=== PATIENT | female | born 1945 | race Caucasian/White ===

== ENCOUNTER 2021-10-04 00:42 | Inpatient (IN) | payer MEDICARE, SELFPAY ==
[2021-10-04] VITALS (28 sets, daily range): BP systolic 124–160; BP diastolic 66–103; PULSE 78–108; RESP 16–27; TEMP 36.2–37.3; O2SAT 93–100; BMI 28.2; BMI 28.1
--- NOTE | ~2021-10-04 | CT_ITS ---
EXAMINATION: CT brain wo con DATE: 10/04/2021 01:44 INDICATION: Confusion. TECHNIQUE: Computed tomography (CT) of the head was performed without intravenous contrast. The mA wa s adjusted according to patient size. Iterative reconstruction technique was employed. The dose-lengt h product was 681.00 mGy-cm. COMPARISON: Head CT 03/08/2016 FINDINGS: There is chronic encephalomalacia in left parietal lobe. There are scattered areas of low a ttenuation in the cerebral white matter. There is no acute ischemic infarct or intracranial hemorrhag e. The ventricles are dilated out of proportion to the size of the sulci. There are likely changes of ocular lens replacement surgeries. The paranasal sinuses are clear. There are small mastoid effusio ns. IMPRESSION: 1. Chronic encephalomalacia in left parietal lobe. 2. Mild nonspecific cerebral white matter disease, which likely represents chronic small vessel ische lakisha disease. 3. Stable ventriculomegaly. Correlate clinically for normal pressure hydrocephalus. Reviewed, dictated and finalized at location A. IMPRESSION: 1. Chronic encephalomalacia in left parietal lobe. 2. Mild nonspecific cerebral white matter disease, which likely represents director digital sales javier small vessel ischemic disease. 3. Stable ventriculomegaly. Correlate clinically for normal pressure hydrocepha lance.
--- NOTE | ~2021-10-04 | US_ITS ---
EXAMINATION: US renal BI DATE: 10/04/2021 09:32 INDICATION: Acute renal insufficiency TECHNIQUE: Multiple ultrasound grayscale images of the kidneys were obtained. COMPARISON: None. FINDINGS: The right kidney measures 8.3 x 4.7 x 4.2 cm. The left kidney measures 10.9 x 6.0 x 3.9 cm. The kidne ys demonstrate normal echogenicity. There is no hydronephrosis in either kidney. No stones identifie d. Patient refused scanning of the bladder. IMPRESSION: 1. Normal kidneys without hydronephrosis. Reviewed, dictated and finalized at location B.
--- NOTE | ~2021-10-04 | US_ITS ---
EXAMINATION: US abdomen limited DATE: 10/07/2021 09:17 INDICATION: Transaminitis TECHNIQUE: Multiple grayscale and Doppler ultrasound images of the abdomen were obtained. COMPARISON: None available FINDINGS: Bowel gas obscures portions of the pancreas. The visualized portions of the pancreas are un remarkable. The liver is difficult to penetrate but grossly normal with normal echogenicity and echot exture. No surface nodularity. Normal hepatopetal flow in the main portal vein. The gallbladder is no t visualized. The common bile duct measures 1.4 cm. There was no sonographic Colon sign. The visuali zed portions of the aorta and inferior vena cava are normal. IMPRESSION: 1. Limited examination. 2. Nonvisualization of the gallbladder. 3. Common bile duct dilation. Reviewed, dictated and finalized at location K.
--- NOTE | ~2021-10-04 | US_ITS ---
EXAMINATION: US soft tissue head and neck DATE: 10/04/2021 17:27 INDICATION: Left facial wound. TECHNIQUE: Multiple grayscale and Doppler ultrasound images of the face were obtained. COMPARISON: Head CT 10/04/2021 FINDINGS: There is hyperechoic fat in the left cheek, consistent with inflammation. No abscess. IMPRESSION: 1. Left cheek inflammation. No abscess. Reviewed, dictated and finalized at location A.
[2021-10-04 02:09] LABS: Basophils Percent Auto 0.1 % (0.2-1.2); Hematocrit 43.1 % (37.0-47.0); Hemoglobin 13.9 g/dL (12.0-15.0); Immature Granulocyte Absolute 0.14 K/mm3 (0.00-0.031); Immature Granulocyte Percent A 0.7 % (0-0.5); Lymphocytes Absolute Auto 1.51 K/mm3 (0.9-3.2); Lymphocytes Percent Auto 7.2 % (18.3-44.2); Mean Corpuscular HGB Conc 32.3 g/dl (32-36); Mean Corpuscular Hemoglobin 27.8 pg (26-34); Mean Corpuscular Volume 86.2 fl (80-100); Mean Platelet Volume 9.8 fl (7.4-10.4); Monocytes Absolute Auto 1.3 K/mm3 (0.1-0.6); Monocytes Percent Auto 6.2 % (2.6-8.5); Neutrophils Absolute Auto 17.9 K/mm3 (1.3-6.7); Neutrophils Percent Auto 85.8 % (45.5-73.1); Platelet Count Result 451 k/mm3 (150-375); White Blood Count 20.9 K/mm3 (4.5-10.0)
[2021-10-04 02:19] LABS: Alanine Aminotransferase 33 U/L (4-35); Albumin Level 4.5 g/dL (3.5-5.1); Alkaline Phosphatase 181 U/L (38-126); Anion Gap 15 mmol/L (8-16); Aspartate Amino Transferase 60 U/L (14-36); Bilirubin,Total 0.5 mg/dL (0.2-1.3); Blood Urea Nitrogen 39 mg/dL (7-17); Calcium 10.6 mg/dL (8.4-10.2); Carbon Dioxide 22 mmol/L (22-30); Chloride 107 mmol/L (98-107); Estimated Glomerular Filt Rate 12; Glucose 193 mg/dL (65-110); Potassium 3.7 mmol/L (3.4-5.0); Sodium 144 mmol/L (137-145)
[2021-10-04 02:39] LABS: Add Urine Microscopic? YES; Appearance Urine Cloudy (Clear); Bilirubin Urine Negative (Negative); Blood Urine 1+ (Negative); Color Urine Yellow (Yellow); Glucose Urine UA Negative (Negative); Ketones Urine Negative (Negative); Leukocyte Esterase Ur 3+ LEU/UL (Negative); Mucus Urine Rare /lpf; Nitrate Urine Negative (Negative); Protein Urine 1+ mg/dL (Negative); Specific Grav Ur 1.014 (1.001-1.035); Squamous Epithelial Cell Urine Occasional /hpf (Few); Urobilinogen Urine Negative mg/dL (<2.0); WBC Clumps Urine Present /HPF; WBC Urine >75 /hpf
[2021-10-04 02:45] LABS: Amphetamine Screen Urine Negative (Negative); Barbiturate Screen Urine Negative (Negative); Benzodiazepines Screen Urine Negative (Negative); Cannabinoid Screen Urine Negative (Negative); Cocaine Screen Urine Negative (Negative); Methadone Screen Urine Negative (Negative); Opiate Screen Urine Negative (Negative); Phencyclidine Screen Urine Negative (Negative)
--- NOTE | 2021-10-04 02:53 | ED.GENADULT ---
HPI - General Adult General Chief complaint: Unspecified Stated complaint: delusions hx schizo Time Seen by Provider: 10/04/21 00:45 Source: patient Mode of arrival: EMS Limitations: altered mental status History of Present Illness HPI narrative: 76-year-old with a history of schizophrenia was brought in from [facility] by EMS she was found naked in front of her hotel room stating that her son has been killed 3 days ago, she states that she has been watching TV and found disturbing news. However upon arrival to the ER patient states that she is extremely dehydrated. She denies any fever or chills. No history of nausea or vomiting and diarrhea. Denies any abdominal pain. As per the EMS patient fell earlier with no loss of consciousness. Patient states that she has not been taking her psych medications. Onset (ago): day(s) (1) Location: head Associated symptoms: denies other symptoms Related Data Allergies Allergy/AdvReac Type Severity Reaction Status Date / Time Unable to Assess Allergy Unverified 03/08/16 17:09 Review of Systems Review of Systems: All systems reviewed & are unremarkable except as noted in HPI and below Constitutional: Constitutional: Reports no additional constitutional complaints Eyes: Eyes: Reports no additional eye complaints ENT: Reports system reviewed and no additional complaints, except as documented Cardiovascular: Cardiovascular: Reports no additional cardiovascular complaints Respiratory: Respiratory: Reports no additional respiratory complaints Gastrointestinal: Gastrointestinal: Reports no additional gastrointestinal complaints Genitourinary: Genitourinary: Reports no additional female genitourinary complaints Musculoskeletal: Musculoskeletal: Reports no additional musculoskeletal complaints Integumentary/Breasts: Skin/Breast: Reports system reviewed and no additional complaints, except as docu Neurologic: Reports system reviewed and no additional complaints, except as documented Exam Narrative: GENERAL: Well-appearing, well-nourished, and in no acute distress. Confused HEAD: Normocephalic, atraumatic. EYES: PERRLA and EOMI. NECK: Supple. CHEST: Clear to auscultation. No respiratory distress. HEART: Regular rate and rhythm. No murmur heard. Normal peripheral pulses. ABDOMEN: Soft, nontender, nondistended, normal active bowel sounds. EXTREMITIES: Normal range of motion. No edema. SKIN: Warm, dry, no rash. NEURO: No focal deficits. Alert and oriented x3. Confused at times PSYCH: Normal mood and affect. Course Course Emergency Course: Inform patient about her lab work. She agreed for admission. Discussed with Dr. Hassan agreed to admit the patient. Vital Signs Vital signs: Vital Signs Temperature 36.7 C 10/04/21 00:47 Pulse Rate 106 H 10/04/21 00:47 Respiratory Rate 20 10/04/21 00:47 Blood Pressure 124/71 10/04/21 00:47 Pulse Oximetry 97 10/04/21 00:47 Temperature 36.7 C 10/04/21 00:47 Pulse Rate 102 H 10/04/21 01:27 Respiratory Rate 25 H 10/04/21 01:27 Blood Pressure 143/83 H 10/04/21 01:27 Pulse Oximetry 99 10/04/21 01:27 Medical Decision Making MDM Narrative Medical decision making narrative: 76-year-old with a history of schizophrenia now having confusion and paranoia not quite sure whether she is decompensating or could be underlying metabolic or infectious cause. We will do a CT of the head and routine lab work. Differential Diagnosis Differential Diagnosis: Hyponatremia, head injury, UTI, schizophrenia Medical Records Medical records reviewed: Yes I reviewed the external patient's medical records. Vital Signs Vital Signs: Vital Signs Temperature 36.7 C 10/04/21 00:47 Pulse Rate 106 H 10/04/21 00:47 Respiratory Rate 20 10/04/21 00:47 Blood Pressure 124/71 10/04/21 00:47 Pulse Oximetry 97 10/04/21 00:47 Temperature 36.7 C 10/04/21 00:47 Pulse Rate 102 H 10/04/21 01:27 Respiratory Rate 25 H
[2021-10-04] MEDS: SODIUM CHLORIDE 0.9% IV 1,000 ML 150 ML IV CONT (03:00)
[2021-10-04] MEDS: OXYMETAZOLINE HCL 0.05% NAS 15 ML BTL (*BKC) 1 SPRAY (03:27)
[2021-10-04 03:48] LABS: Acetaminophen < 10 ug/mL (10-30); Lactic Acid Reflex 1.4 mmol/L (0.7-2.0); Salicylate < 1.0 mg/dL (2-20)
[2021-10-04 04:13] LABS: SARS-CoV-2 RNA PCR Negative
[2021-10-04] MEDS: SODIUM CHLORIDE 0.9% IV 1,000 ML 125 ML IV CONT ×2 (04:51→10:34)
[2021-10-04] MEDS: ASPIRIN 81 MG ENTERIC TABLET PO (08:56)
[2021-10-04 09:04] LABS: Anion Gap 10 mmol/L (8-16); Blood Urea Nitrogen 44 mg/dL (7-17); Calcium 9.6 mg/dL (8.4-10.2); Carbon Dioxide 19 mmol/L (22-30); Chloride 112 mmol/L (98-107); Estimated CRCL calculation 19 ml/min; Estimated Glomerular Filt Rate 18; Glucose 109 mg/dL (65-110); Potassium 3.6 mmol/L (3.4-5.0); Sodium 141 mmol/L (137-145)
[2021-10-04] MEDS: ACETAMINOPHEN 325 MG TABLET 650 MG PO (10:35)
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
--- NOTE | 2021-10-04 16:09 | PHAR ---
HOME MEDICATION - PALIPERIDONE 3 MG TABLET. ARRIVED IN A CONTAINER WITH INVEGA WRITTEN ON IT. PHARMACY HAS VERIFIED THAT THE DRUG IN THE CONTAINER IS PALIPERIDONE 3 MG.
[2021-10-04 17:43] LABS: Creatine Kinase 939 U/L (30-135)
[2021-10-04] MEDS: rOPINIRole HCL 1 MG TABLET PO (20:24)
[2021-10-04] MEDS: QUEtiapine FUMARATE 100 MG TABLET PO (20:24)
[2021-10-05] VITALS: BP 93/64; PULSE 79; RESP 18; TEMP 36.4; O2SAT 100
[2021-10-05] MEDS: SODIUM CHLORIDE 0.9% IV 1,000 ML 125 ML IV CONT ×2 (01:11→13:27)
[2021-10-05 04:00] VITALS: BP 117/64; PULSE 63; RESP 16; TEMP 36; O2SAT 100
[2021-10-05 04:57] VITALS: O2SAT 98
--- NOTE | 2021-10-05 07:32 | WPDCN ---
Assessment and Plan Assessment and plan (1) Open facial wound: Code(s): S01.80XA - Unspecified open wound of other part of head, initial encounter Status: Acute Assessment and Plan: This appears to be erysipelas or topical dermatis. May have been started by a smaller irritation and then contaminated and treated with ointment such as Neosporin. Does not appear to be an abscess or skin ca. Ceftriaxone seems appropriate for a few of days. Avoid topical ointments. We may want to consider topical cortisone after observing the course of this for a couple days. Work up for other source of leukocytosis seems warranted. Will follow. HPI Data of Consult Date/Time: 10/05/21 07:32 Requesting Physician: Jocy Moon PA-C Primary Care Provider: UNKNOWN,DOCTOR Consult Narrative Narrative: Veronica Torres is a 76 year old female with schizophrenia apparently decompensated and has lost her lodging. On admission for dementia she has been noted to have swelling, erythema and excoriation of the mid left cheek. There is superficial edema and yellow serous drainage. No palpable central mass or chronic actinic damage or elevated or necrotic epithelium. Duration of this lesion or recent treatment for it are not known. Her WBC was 20.[address] of the head and neck did not reveal evidence of facial abscess. The patient is minimally cooperative to exam. Current antibiotic treatment is Ceftriaxone. [facility] Past Medical History Medical History (Updated 10/04/21 @ 15:36 by Jocy Moon PA-C) CVA (cerebral vascular accident) Glaucoma Hypertension Schizophrenia Family History Family History (Updated 10/04/21 @ 15:20 by Jocy Moon PA-C) Unknown Family history unknown Social History Social History (Updated 10/04/21 @ 15:29 by Jocy Moon PA-C) Social History: Ms. Torres lives alone. She has been staying in a hotel for several months but now states she can't pay for this anymore. She has no family or friend support. She states her emergency contact is a friend named Mary but she has not spoken to her in years. She requests to be a full code. Smoking status: Never smoker Second hand tobacco smoke exposure: No Alcohol intake: unknown Substance use: unknown Spiritual care concerns: No Meds Home Medications and Allergies Home Medications Medication Instructions Recorded Confirmed Type aspirin 81 mg PO DAILY 10/04/21 10/04/21 History omeprazole 20 mg PO DAILY 10/04/21 10/04/21 History paliperidone 3 mg PO HS 10/04/21 10/04/21 History quetiapine 100 mg PO HS 10/04/21 10/04/21 History ropinirole 1 mg PO HS 10/04/21 10/04/21 History Allergies Allergy/AdvReac Type Severity Reaction Status Date / Time No Known Allergies Allergy Verified 10/04/21 03:26 Vital Signs Vital Signs - 24 hr 10/04/21 14:00 10/04/21 20:00 10/05/21 00:00 Temperature 99.1 F 98.7 F 97.6 F Pulse Rate 78 84 79 Respiratory Rate 19 18 18 Blood Pressure 138/80 127/80 93/64 L Pulse Oximetry 99 97 100 10/05/21 04:00 10/05/21 04:57 Temperature 96.8 F L Pulse Rate 63 Respiratory Rate 16 Blood Pressure 117/64 Pulse Oximetry 100 98 Results Labs CBC & Chem 7: 10/04/21 02:02 10/04/21 08:06 Labs: BMP 10/04/21 08:06 Sodium 141 Potassium 3.6 Chloride 112 H Carbon Dioxide 19 L BUN 44 H Creatinine 2.60 H Glucose 109 Calcium 9.6 Cardiac Enzymes 10/04/21 Range/Units 16:38 Total Creatine Kinase 939 H (30-135) U/L
[2021-10-05 08:00] VITALS: BP 120/62; PULSE 64; RESP 16; TEMP 36.1; O2SAT 98
--- NOTE | 2021-10-05 08:05 | PCOTNOTE ---
Attempted OT evaluation this AM. Patient sleeping soundly and would not open eyes to verbal or tactile stimulation. When asked if she wants to get up for breakfast she shakes her head no . Will continue to attempt.
[2021-10-05 08:36] LABS: Basophils Absolute Auto 0.1 K/mm3 (0.0-0.1); Basophils Percent Auto 1.1 % (0.2-1.2); Eosinophils Absolute Auto 0.5 K/mm3 (0-0.3); Eosinophils Percent Auto 4.6 % (0-4.4); Hematocrit 35.9 % (37.0-47.0); Hemoglobin 11.7 g/dL (12.0-15.0); Immature Granulocyte Absolute 0.03 K/mm3 (0.00-0.031); Immature Granulocyte Percent A 0.3 % (0-0.5); Lymphocytes Absolute Auto 3.53 K/mm3 (0.9-3.2); Lymphocytes Percent Auto 33.1 % (18.3-44.2); Mean Corpuscular HGB Conc 32.6 g/dl (32-36); Mean Corpuscular Hemoglobin 27.9 pg (26-34); Mean Corpuscular Volume 85.5 fl (80-100); Mean Platelet Volume 9.3 fl (7.4-10.4); Monocytes Absolute Auto 0.7 K/mm3 (0.1-0.6); Monocytes Percent Auto 6.2 % (2.6-8.5); Neutrophils Absolute Auto 5.8 K/mm3 (1.3-6.7); Neutrophils Percent Auto 54.7 % (45.5-73.1); Platelet Count Result 346 k/mm3 (150-375); Red Cell Distribution Width 15.1 % (11.5-14.5); White Blood Count 10.7 K/mm3 (4.5-10.0)
[2021-10-05 08:42] LABS: Hemoglobin A1C 5.9 % (<5.7)
[2021-10-05 08:55] LABS: Creatine Kinase 1044 U/L (30-135)
[2021-10-05 08:58] LABS: Alanine Aminotransferase 33 U/L (4-35); Albumin Level 3.1 g/dL (3.5-5.1); Alkaline Phosphatase 121 U/L (38-126); Anion Gap 4 mmol/L (8-16); Aspartate Amino Transferase 71 U/L (14-36); Bilirubin,Total 0.4 mg/dL (0.2-1.3); Blood Urea Nitrogen 36 mg/dL (7-17); Calcium 9.1 mg/dL (8.4-10.2); Carbon Dioxide 23 mmol/L (22-30); Chloride 114 mmol/L (98-107); Estimated CRCL calculation 32 ml/min; Estimated Glomerular Filt Rate 34; Glucose 88 mg/dL (65-110); Potassium 3.6 mmol/L (3.4-5.0); Sodium 141 mmol/L (137-145)
--- NOTE | 2021-10-05 11:59 | ECG_ITS ---
Measurements Intervals [place] Rate: 95 P: 48 GA: 149 QRS: -9 QRSD: 88 T: 12 QT: 353 QTc: 445 Interpretive Statements SINUS RHYTHM LOW QRS VOLTAGE IN PRECORDIAL LEADS [QRS DEFLECTION < 1.0 mV IN CHEST LEADS] NO PREVIOUS ECG AVAILABLE FOR COMPARISON Electronically Signed On 10-06-2021 13:37:17 CDT by Jodee Butt M.D.
[2021-10-05 12:00] VITALS: BP 122/64; PULSE 64; RESP 16; TEMP 36.9; O2SAT 99
[2021-10-05 12:26] LABS: Cholesterol 198 mg/dL (0-200); HDL Direct 40 mg/dL; Triglycerides 276 mg/dL (<150)
[2021-10-05 12:37] LABS: LDL Cholesterol Direct 112 mg/dL
[2021-10-05 12:41] LABS: Vitamin D 25 Hydroxy 33.3 ng/mL
[2021-10-05 13:08] LABS: Hepatitis B Surface Antigen Negative (Negative)
[2021-10-05 13:10] LABS: HIV 1/2 Ab P24 Ag Result Negative (Negative)
[2021-10-05 13:14] LABS: HAV RESULT Negative (Negative); Hepatitis B Core IgM Result Negative (Negative)
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
[2021-10-05 13:26] LABS: Hepatitis C Virus Antibody Negative (Negative)
[2021-10-05] MEDS: ASPIRIN 81 MG ENTERIC TABLET PO (13:28)
[2021-10-05 13:41] LABS: Folic Acid 11.2 ng/mL (2.76->20)
[2021-10-05 20:00] VITALS: BP 138/67; PULSE 88; RESP 24; TEMP 37.1; O2SAT 98
[2021-10-05] MEDS: rOPINIRole HCL 1 MG TABLET PO (21:11)
[2021-10-05] MEDS: QUEtiapine FUMARATE 100 MG TABLET PO (21:11)
[2021-10-05] MEDS: SODIUM CHLORIDE 0.9% IV 1,000 ML 100 ML IV CONT (21:16)
[2021-10-06] VITALS (7 sets, daily range): BP systolic 124–173; BP diastolic 66–78; PULSE 80–94; RESP 16–24; TEMP 36.6–37.4; O2SAT 94–97
[2021-10-06 05:56] LABS: Hematocrit 31.3 % (37.0-47.0); Hemoglobin 9.7 g/dL (12.0-15.0); Mean Corpuscular Hemoglobin 27.8 pg (26-34); Mean Corpuscular Volume 89.7 fl (80-100); Mean Platelet Volume 10.1 fl (7.4-10.4); Platelet Count Result 267 k/mm3 (150-375); Red Blood Count 3.49 M/mm3 (4.2-5.4); Red Cell Distribution Width 15.6 % (11.5-14.5); White Blood Count 7.8 K/mm3 (4.5-10.0)
[2021-10-06] MEDS: SODIUM CHLORIDE 0.9% IV 1,000 ML 100 ML IV CONT (06:26)
[2021-10-06 06:27] LABS: Alanine Aminotransferase 93 U/L (4-35); Albumin Level 2.6 g/dL (3.5-5.1); Alkaline Phosphatase 192 U/L (38-126); Anion Gap 5 mmol/L (8-16); Aspartate Amino Transferase 278 U/L (14-36); Bilirubin,Total 0.5 mg/dL (0.2-1.3); Blood Urea Nitrogen 33 mg/dL (7-17); Calcium 8.2 mg/dL (8.4-10.2); Carbon Dioxide 19 mmol/L (22-30); Chloride 117 mmol/L (98-107); Creatine Kinase 380 U/L (30-135); Estimated CRCL calculation 43 ml/min; Estimated Glomerular Filt Rate 48; Glucose 116 mg/dL (65-110); Potassium 3.7 mmol/L (3.4-5.0); Sodium 141 mmol/L (137-145)
[2021-10-06] MEDS: ASPIRIN 81 MG ENTERIC TABLET PO (07:57)
--- NOTE | 2021-10-06 14:32 | P.PNIM_ITS ---
Progress Note: A&P Assessment and Plan (1) Sepsis: Code(s): A41.9 - Sepsis, unspecified organism Status: Resolved Assessment and Plan: Resolved. Patient septic on presentation evident by marked leukocytosis, t achycardia, tachypnea, and acute renal failure * Source of infection felt to be due to UTI * Tachypnea and tachycardia resolved. Patient remains afebrile * Leukocytosis resolved * Continue IV antibiotics (2) Open facial wound: Code(s): S01.80XA - Unspecified open wound of other part of head, initial encounter Status: Acute Assessment and Plan: Patient with left-sided facial wound draining yellow serous fluid with surrounding erythema, edema * Patient not agreeable to CT for further evaluation. Ultrasound showed left cheek inflammation without abscess * Appreciate Plastic surgery consultation * Wound culture pending * Appreciate wound care evaluation * Continue ceftriaxone per plastic surgery recommendations. Avoid topical ointments (3) Acute UTI: Code(s): N39.0 - Urinary tract infection, site not specified Status: Acute Assessment and Plan: Urinalysis grossly abnormal at presentation * Urine culture with growth of >100k CFU coagulase negative Staphylococcus * Transition antibiotics to cefazolin based on susceptibility report (4) Schizophrenia: Code(s): F20.9 - Schizophrenia, unspecified Status: Acute Assessment and Plan: Patient has been off of her medications for 1 week. She is experiencing hallucinations and delusions * Continue paliperidone. This is nonformulary but has been brought from home and will be continued * Continue seroquel * Appreciate psychiatry evaluation * Laboratory workup unremarkable: TSH, B12, folate, vitamin-D within normal limits, HIV, hepatitis panel negative, RPR pending * MMSE score is 28/30 (5) Rhabdomyolysis: Code(s): M62.82 - Rhabdomyolysis Status: Acute Assessment and Plan: CK was mildly elevated up to 1044. This was following 24 hours of IV hydration, therefore suspect was more significant on presentation * Etiology for this is unclear. Patient's son believes she had a fall which is the likely etiology * CK as improved to 380 today * Discontinue IV fluids (6) MUNDO (acute kidney injury): Code(s): N17.9 - Acute kidney failure, unspecified Status: Acute Assessment and Plan: Likely pre renal secondary to severe dehydration * Creatinine has improved with IV fluids from 3.7 on presentation to 1.1 today * Discontinue IV fluids. Encourage appropriate oral intake * Renal ultrasound performed showed normal kidneys without hydronephrosis * Avoid nephrotoxins * Monitor renal function closely (7) Transaminitis: Code(s): R74.01 - Elevation of levels of liver transaminase levels Status: Acute Assessment and Plan: Sharp increase in LFTs today * May be delayed response to rhabdomyolysis * May be medication related * Continue to monitor closely * Obtain RUQ US if no improvement Subjective Date/time seen: 10/06/21 14:32 Interval history: Date of service: 10/06/2021 Veronica Torres is a 76-year-old female with a history of schizophrenia, glaucoma, hypertension, and CVA who is seen in follow-up for UTI and left facial wound. She is feeling well today. She has no concerns. States that she is not having any facial pain from her wound. Denies abdominal pain, nausea, vomiting, chest pain, shortness of breath. Denies any issues with urinat
--- NOTE | 2021-10-06 14:32 | PM.IMPN ---
Progress Note: A&P Assessment and Plan (1) Sepsis: Code(s): A41.9 - Sepsis, unspecified organism Status: Resolved Assessment and Plan: Resolved. Patient septic on presentation evident by marked leukocytosis, tachycardia, tachypnea, and acute renal failure Source of infection felt to be due to UTI Tachypnea and tachycardia resolved. Patient remains afebrile Leukocytosis resolved Continue IV antibiotics (2) Open facial wound: Code(s): S01.80XA - Unspecified open wound of other part of head, initial encounter Status: Acute Assessment and Plan: Patient with left-sided facial wound draining yellow serous fluid with surrounding erythema, edema Patient not agreeable to CT for further evaluation. Ultrasound showed left cheek inflammation without abscess Appreciate Plastic surgery consultation Wound culture pending Appreciate wound care evaluation Continue ceftriaxone per plastic surgery recommendations. Avoid topical ointments (3) Acute UTI: Code(s): N39.0 - Urinary tract infection, site not specified Status: Acute Assessment and Plan: Urinalysis grossly abnormal at presentation Urine culture with growth of >100k CFU coagulase negative Staphylococcus Transition antibiotics to cefazolin based on susceptibility report (4) Schizophrenia: Code(s): F20.9 - Schizophrenia, unspecified Status: Acute Assessment and Plan: Patient has been off of her medications for 1 week. She is experiencing hallucinations and delusions Continue paliperidone. This is nonformulary but has been brought from home and will be continued Continue seroquel Appreciate psychiatry evaluation Laboratory workup unremarkable: TSH, B12, folate, vitamin-D within normal limits, HIV, hepatitis panel negative, RPR pending MMSE score is 28/30 (5) Rhabdomyolysis: Code(s): M62.82 - Rhabdomyolysis Status: Acute Assessment and Plan: CK was mildly elevated up to 1044. This was following 24 hours of IV hydration, therefore suspect was more significant on presentation Etiology for this is unclear. Patient's son believes she had a fall which is the likely etiology CK as improved to 380 today Discontinue IV fluids (6) MUNDO (acute kidney injury): Code(s): N17.9 - Acute kidney failure, unspecified Status: Acute Assessment and Plan: Likely pre renal secondary to severe dehydration Creatinine has improved with IV fluids from 3.7 on presentation to 1.1 today Discontinue IV fluids. Encourage appropriate oral intake Renal ultrasound performed showed normal kidneys without hydronephrosis Avoid nephrotoxins Monitor renal function closely (7) Transaminitis: Code(s): R74.01 - Elevation of levels of liver transaminase levels Status: Acute Assessment and Plan: Sharp increase in LFTs today May be delayed response to rhabdomyolysis May be medication related Continue to monitor closely Obtain RUQ US if no improvement Subjective Date/time seen: 10/06/21 14:32 Interval history: Date of service: 10/06/2021 Veronica Torres is a 76-year-old female with a history of schizophrenia, glaucoma, hypertension, and CVA who is seen in follow-up for UTI and left facial wound. She is feeling well today. She has no concerns. States that she is not having any facial pain from her wound. Denies abdominal pain, nausea, vomiting, chest pain, shortness of breath. Denies any issues with urination including dysuria. She has been able to get up and walk to the restroom without difficulties. She has no concerns. Spoke with patient's son, Jairo, via phone today to provide updates. Review of Systems Review of Systems: All systems reviewed & are unremarkable except as noted in HPI and below Exam Narrative: General: Well-nourished, well-appearing 76 year-old female, sitting up in bed, comfortable, NARD Neuro: awake, ahmet
--- NOTE | 2021-10-06 22:16 | WPDCNPSYCH ---
[facility] Data of Consult Date/Time: 10/06/21 22:16 Requesting Physician: Jocy Moon PA-C Primary Care Provider: UNKNOWN,DOCTOR Consult Narrative Narrative: Diagnoses: Schizophrenia Cognitive disorder, not otherwise specified Rising liver function tests of unknown etiology Rhabdomyolysis, resolving Hyperlipidemia Discussion: Patient presented with an altered mental state with prominent psychotic features in the context of a urinary tract infection, rhabdomyolysis, infected facial wound, dehydration, and pharmacologic noncompliance. With the use of good medical management the patient is improving not only medically but also her mental status has much improved. Her psychosis is resolved. She has no meaningful behavioral features. Differential diagnoses: Delirium due to urosepsis Neurocognitive disorder (dementia), possibly of the vascular type, mild, with superimposed delirium possibly from urosepsis (much improved due to good medical management) Plan: 1. Discontinue Seroquel due to patient report of it being too sedating. 2. Discontinue Requip due to the high anticholinergic/antihistaminic side effect risks of delirium and urinary retention with it's risk of UTI and delirium 3. Discontinue Omeprazole dute to not needed and she has not been taking it. 4. Risperdal 1 mg po q hs for Schizophrenia. Target dose 2 mg po q hs 5. Continue ASA 81 mg po q am 6. Care coordination consult for MMSE to screen for dementia, to discuss advanced directive, and to liaison patient request to move closer to her son. Reason for hospitalization: Patient is a 76-year-old lady admitted through the emergency department for altered mental state in the context of pharmacologic noncompliance, urinary tract infection, rhabdomyolysis, infected facial wound, and dehydration Reason for psychiatric evaluation/consultation: Psychosis Review of systems: Patient reports upper back discomfort. Otherwise she denies any other problems with her head chest abdomen arms legs or joints. Muscle strength and tone are normal. Station and gait were not tested. Breathing is regular and nonlabored. She has no shakes or sweats. Mental status exam: Patient has a mild self-care deficit. Eye contact, posture, psychomotor activity are normal. Speech is normal in rate, volume, and is goal-directed. Mood is: ?Great. ? affect is euthymic. She denies suicidal or homicidal ideation. She denies being an injury risk to herself or others. She denies any auditory or visual hallucinations or paranoia. Cognitively she appears to be below average in intelligence, fund of knowledge, insight and judgment. But she seems much improved over earlier presentation. She may continue to improve with continued good medical care. Medical evaluation: CBC: WBCs are 10.7; hemoglobin was 11.7 which has corrected to 9.7 Comprehensive metabolic panel: Glucose was 116; chloride was 117; CO2 was 19; BUN was 33; creatinine was 1.10; calcium was 8.2; AST was 71 which has risen to 278; ALT was 33 and has increased to 93; alkaline phosphatase was 121 and has risen to 192 Serum CK: 939 which corrected to 1044 and then corrected again to 380 Lipid panel:TG =276; Cholesterol = 198; LDL =112; HDL =40 Vitamin B12 level is 325 Vitamin D3 level is 33 Folic acid level is 11.2 TSH is 3.4 1 0 Urinalysis is consistent with urinary tract infection Urine culture and sensitivity: Coagulase negative Staph (not saprophyti) Urine drug screen: Negative Salicylate level less than 1.0 COVID testing: Pending HIV serology negative Hepatitis panel negative RPR serology pending CT of the head without contrast demonstrates chronic encephalomalacia of the left parietal lobe. Ventricles dilated out of proportion to the size of sulci. Changes of the ocular lens consistent with replacement surgery EKG: Sinus rhythm. History of present illness: Medical service report: Patient was admitted through the emergency
[2021-10-06] MEDS: risperiDONE 1 MG TABLET PO (23:20)
[2021-10-07 04:00] VITALS: BP 157/89; PULSE 84; RESP 16; TEMP 36.7; O2SAT 97
[2021-10-07 06:11] LABS: Hematocrit 32.7 % (37.0-47.0); Hemoglobin 10.4 g/dL (12.0-15.0); Mean Corpuscular HGB Conc 31.8 g/dl (32-36); Mean Corpuscular Hemoglobin 27.2 pg (26-34); Mean Corpuscular Volume 85.6 fl (80-100); Mean Platelet Volume 9.5 fl (7.4-10.4); Platelet Count Result 286 k/mm3 (150-375); Red Blood Count 3.82 M/mm3 (4.2-5.4); Red Cell Distribution Width 15.4 % (11.5-14.5); White Blood Count 5.3 K/mm3 (4.5-10.0)
[2021-10-07 06:26] LABS: Alanine Aminotransferase 214 U/L (4-35); Alkaline Phosphatase 283 U/L (38-126); Anion Gap 3 mmol/L (8-16); Aspartate Amino Transferase 265 U/L (14-36); Bilirubin,Total 0.6 mg/dL (0.2-1.3); Blood Urea Nitrogen 23 mg/dL (7-17); Calcium 8.6 mg/dL (8.4-10.2); Carbon Dioxide 22 mmol/L (22-30); Chloride 115 mmol/L (98-107); Creatine Kinase 200 U/L (30-135); Estimated CRCL calculation 52 ml/min; Estimated Glomerular Filt Rate > 60; Glucose 104 mg/dL (65-110); Potassium 3.9 mmol/L (3.4-5.0); Sodium 140 mmol/L (137-145)
--- NOTE | 2021-10-07 08:38 | WPDPN ---
Progress Note: A&P Assessment and Plan (1) Open facial wound: Code(s): S01.80XA - Unspecified open wound of other part of head, initial encounter Status: Acute Assessment and Plan: Overall marked improvement in pt's condition. The face appears little changed. Seems that self-inflicted scald burn with subsequent cellulitis may be likely cause. Will try a few days of TAC to the area tid and monitor reaction. Subjective Date/time seen: 10/07/21 08:38 Patient is awake and pleasantly conversant. She is grateful for all the help she has been given. She provides more history today. She tells me that the site on her left face had no issue until someone told her to apply very hot water to the cheek. She say she dot not treat the area with any other topical ointments or salves. She says the area has not ever hurt. There has been white creamy drainage, but realizes there is no such drainage at this time. The area does not itch. Exam Narrative: WBC has returned to nl level. The site is essentially unchanged in 2 days. There is superficial edema but no palpable mass and no expressible discharge. The area has dried yellow exudate. Minimal erythema or induration Objective Data Vital Signs Vital Signs: Vital Signs - 24 hr 10/06/21 14:40 10/06/21 16:00 10/06/21 20:00 Temperature 98.2 F 98.0 F Pulse Rate 84 89 Respiratory Rate 20 16 Blood Pressure 149/78 H 173/74 H Pulse Oximetry 94 97 96 10/06/21 23:43 10/07/21 04:00 Temperature 97.9 F 98.0 F Pulse Rate 80 84 Respiratory Rate 16 16 Blood Pressure 149/75 H 157/89 H Pulse Oximetry 97 97 Intake/Output Intake/Output: Intake & Output 10/04/21 10/05/21 10/06/21 10/07/21 23:59 23:59 23:59 23:59 Intake Total 4037 4227 2180 800 Output Total 0 Balance 4037 4227 2180 800 Meds/Results Medications: Active Medications Generic Name Dose Route Start Last Admin Trade Name Freq PRN Reason Stop Dose Admin Acetaminophen 650 mg 10/04/21 02:55 10/04/21 10:35 Acetaminophen 325 Mg Tablet PO 650 mg Q4H PRN Administration Mild Pain (1-3) or Fever Aspirin 81 mg 10/04/21 09:00 10/06/21 07:57 Aspirin 81 Mg Enteric Tablet PO 81 mg DAILY GIOVANI Administration Home Med 1 each 10/04/21 21:00 10/06/21 21:19 Home Medication (Paliperidone 3 Mg) BY MOUTH 11/03/21 20:59 1 each HS GIOVANI Administration Cefazolin Sodium 1 gm in 50 mls @ 100 mls/hr 10/06/21 14:00 10/07/21 07:30 Ancef 1 Gm/D5w 50 Ml Pm IVPB Infused Q8HR GIOVANI Infusion Ondansetron HCl 4 mg 10/04/21 02:55 Ondansetron Inj 4 Mg/2 Ml Vial IV PUSH Q4H PRN Nausea Risperidone 1 mg 10/06/21 21:00 10/06/21 23:20 Risperidone 1 Mg Tablet PO 1 mg HS GIOVANI Administration Radiology Results: ITS Impressions Head CT 10/04/21 07:00 IMPRESSION: 1. Chronic encephalomalacia in left parietal lobe. 2. Mild nonspecific cerebral white matter disease, which likely represents chronic small vessel ischemic disease. 3. Stable ventriculomegaly. Correlate clinically for normal pressure hydrocephalus. Renal Ultrasound 10/04/21 09:36 IMPRESSION: 1. Normal kidneys without hydronephrosis. Head/Neck Ultrasound 10/05/21 06:29 IMPRESSION: 1. Left cheek inflammation. No abscess. Labs Labs: Laboratory Results - last 24 hr 10/07/21 10/07/21 06:03 06:03 WBC 5.3 RBC 3.82 L Hgb 10.4 L Hct 32.7 L MCV 85.6 MCH 27.2 MCHC 31.8 L RDW 15.4 H Plt Count 286 MPV 9.5 Sodium 140 Potassium 3.9 Chloride 115 H Carbon Dioxide 22 Anion Gap 3 L BUN 23 H D Creatinine 0.90 Estim Creat Clear Calc 52 Estimated GFR > 60 Glucose 104 Calcium 8.6 Total Bilirubin 0.6 AST 265 H ALT 214 H Alkaline Phosphatase 283 H Total Creatine Kinase 200 H Total Protein 6.0 L Albumin 3.0 L Quality VTE Prophylaxis VTE prophylaxis: mechanical ordered
--- NOTE | 2021-10-07 08:43 | PC.NURSE ---
to ultrasound per stretcher
--- NOTE | 2021-10-07 09:00 | PC.NURSE ---
patient returning to room from ultrasound
[2021-10-07] MEDS: ASPIRIN 81 MG ENTERIC TABLET PO (09:01)
--- NOTE | 2021-10-07 10:44 | P.PNIM_ITS ---
Progress Note: A&P Assessment and Plan (1) Sepsis: Code(s): A41.9 - Sepsis, unspecified organism Status: Resolved Assessment and Plan: Resolved. Patient septic on presentation evident by marked leukocytosis, t achycardia, tachypnea, and acute renal failure * Source of infection felt to be due to UTI * Tachypnea and tachycardia resolved. Patient remains afebrile * Leukocytosis resolved * Continue IV antibiotics (2) Open facial wound: Code(s): S01.80XA - Unspecified open wound of other part of head, initial encounter Status: Acute Assessment and Plan: Patient with left-sided facial wound draining yellow serous fluid with surrounding erythema, edema * Patient not agreeable to CT for further evaluation. Ultrasound showed left cheek inflammation without abscess * Appreciate Plastic surgery consultation * Wound culture with growth of normal skin guru * Appreciate wound care evaluation * Continue ceftriaxone per plastic surgery recommendations. Trial topical triamcinolone ointment t.i.d. (3) Acute UTI: Code(s): N39.0 - Urinary tract infection, site not specified Status: Acute Assessment and Plan: Urinalysis grossly abnormal at presentation * Urine culture with growth of >100k CFU coagulase negative Staphylococcus * Continue cefazolin based on susceptibility report. Started on 10/06/21 (4) Schizophrenia: Code(s): F20.9 - Schizophrenia, unspecified Status: Acute Assessment and Plan: Patient had been off of her medications for 1 week presented with psychosis * Mental status has vastly improved following addition of antipsychotic agents * Appreciate psychiatry evaluation * Paliperidone discontinued. Started on risperidone 1 mg qHS * Seroquel and ropinirole discontinued * Laboratory workup unremarkable: TSH, B12, folate, vitamin-D within normal limits, HIV, hepatitis panel negative, RPR pending * MMSE score is 28 (5) Rhabdomyolysis: Code(s): M62.82 - Rhabdomyolysis Status: Acute Assessment and Plan: CK was mildly elevated up to 1044. This was following 24 hours of IV hydration, therefore suspect was more significant on presentation * Etiology for this is unclear. Patient's son believes she had a fall which is the likely etiology * CK has improved to 200 today * IV fluids discontinued 10/06 (6) MUNDO (acute kidney injury): Code(s): N17.9 - Acute kidney failure, unspecified Status: Resolved Assessment and Plan: Resolved. Likely pre renal secondary to severe dehydration * Creatinine normalized with IV fluid hydration * Continue to encourage appropriate oral intake * Renal ultrasound performed showed normal kidneys without hydronephrosis * Avoid nephrotoxins * Monitor renal function closely (7) Transaminitis: Code(s): R74.01 - Elevation of levels of liver transaminase levels Status: Acute Assessment and Plan: Sharp increase in LFTs compared to presentation * May be delayed response to rhabdomyolysis * May be medication related * Hepatitis panel negative * Obtain RUQ ultrasound * Continue to monitor closely Subjective Date/time seen: 10/07/21 10:44 Interval history: Date of service: 10/07/2021 Veronica Torres is a 76-year-old female with a history of schizophrenia, glaucoma, hypertension, and CVA who is seen in follow-up for UTI and left facial wound. She is doing well today. She offers no complaints. States her facial wound has been draining more today. It is not p
--- NOTE | 2021-10-07 10:44 | PM.IMPN ---
Progress Note: A&P Assessment and Plan (1) Sepsis: Code(s): A41.9 - Sepsis, unspecified organism Status: Resolved Assessment and Plan: Resolved. Patient septic on presentation evident by marked leukocytosis, tachycardia, tachypnea, and acute renal failure Source of infection felt to be due to UTI Tachypnea and tachycardia resolved. Patient remains afebrile Leukocytosis resolved Continue IV antibiotics (2) Open facial wound: Code(s): S01.80XA - Unspecified open wound of other part of head, initial encounter Status: Acute Assessment and Plan: Patient with left-sided facial wound draining yellow serous fluid with surrounding erythema, edema Patient not agreeable to CT for further evaluation. Ultrasound showed left cheek inflammation without abscess Appreciate Plastic surgery consultation Wound culture with growth of normal skin guru Appreciate wound care evaluation Continue ceftriaxone per plastic surgery recommendations. Trial topical triamcinolone ointment t.i.d. (3) Acute UTI: Code(s): N39.0 - Urinary tract infection, site not specified Status: Acute Assessment and Plan: Urinalysis grossly abnormal at presentation Urine culture with growth of >100k CFU coagulase negative Staphylococcus Continue cefazolin based on susceptibility report. Started on 10/06/21 (4) Schizophrenia: Code(s): F20.9 - Schizophrenia, unspecified Status: Acute Assessment and Plan: Patient had been off of her medications for 1 week presented with psychosis Mental status has vastly improved following addition of antipsychotic agents Appreciate psychiatry evaluation Paliperidone discontinued. Started on risperidone 1 mg qHS Seroquel and ropinirole discontinued Laboratory workup unremarkable: TSH, B12, folate, vitamin-D within normal limits, HIV, hepatitis panel negative, RPR pending MMSE score is 28 (5) Rhabdomyolysis: Code(s): M62.82 - Rhabdomyolysis Status: Acute Assessment and Plan: CK was mildly elevated up to 1044. This was following 24 hours of IV hydration, therefore suspect was more significant on presentation Etiology for this is unclear. Patient's son believes she had a fall which is the likely etiology CK has improved to 200 today IV fluids discontinued 10/06 (6) MUNDO (acute kidney injury): Code(s): N17.9 - Acute kidney failure, unspecified Status: Resolved Assessment and Plan: Resolved. Likely pre renal secondary to severe dehydration Creatinine normalized with IV fluid hydration Continue to encourage appropriate oral intake Renal ultrasound performed showed normal kidneys without hydronephrosis Avoid nephrotoxins Monitor renal function closely (7) Transaminitis: Code(s): R74.01 - Elevation of levels of liver transaminase levels Status: Acute Assessment and Plan: Sharp increase in LFTs compared to presentation May be delayed response to rhabdomyolysis May be medication related Hepatitis panel negative Obtain RUQ ultrasound Continue to monitor closely Subjective Date/time seen: 10/07/21 10:44 Interval history: Date of service: 10/07/2021 Veronica Torres is a 76-year-old female with a history of schizophrenia, glaucoma, hypertension, and CVA who is seen in follow-up for UTI and left facial wound. She is doing well today. She offers no complaints. States her facial wound has been draining more today. It is not painful or bothersome to her in any way. Denies dysuria or hematuria. No nausea, vomiting, fever, or chills. She has been eating well and has been enjoying the food here. We had a good conversation today about her past working in a [employer], also about her son and grandchildren. Review of Systems Review of Systems: All systems reviewed & are unremarkable except as noted in HPI and below Exam Narrative: General: Well-nourished,
[2021-10-07] MEDS: TRIAMCINOLONE ACET 0.5% OINT 15 GM TUBE 1 APPLIC TOPICAL ×3 (11:29→17:37)
[2021-10-07 11:34] VITALS: BP 127/66; PULSE 99; RESP 20; TEMP 35.5; O2SAT 98
[2021-10-07 11:35] VITALS: BP 108/59
[2021-10-07 12:51] VITALS: BP 121/57
[2021-10-07 16:00] VITALS: BP 140/74; PULSE 81; RESP 14; TEMP 36.1; O2SAT 97
[2021-10-07 20:00] VITALS: BP 140/71; PULSE 79; RESP 16; TEMP 36.3; O2SAT 97
[2021-10-07] MEDS: risperiDONE 1 MG TABLET PO (21:11)
[2021-10-08] VITALS (8 sets, daily range): BP systolic 138–194; BP diastolic 67–80; PULSE 77–103; RESP 14–20; TEMP 36–36.6; O2SAT 96–99
[2021-10-08 06:18] LABS: Hematocrit 31.7 % (37.0-47.0); Hemoglobin 10.4 g/dL (12.0-15.0); Mean Corpuscular HGB Conc 32.8 g/dl (32-36); Mean Corpuscular Hemoglobin 27.8 pg (26-34); Mean Corpuscular Volume 84.8 fl (80-100); Mean Platelet Volume 9.9 fl (7.4-10.4); Platelet Count Result 311 k/mm3 (150-375); Red Blood Count 3.74 M/mm3 (4.2-5.4); Red Cell Distribution Width 15.5 % (11.5-14.5); White Blood Count 6.5 K/mm3 (4.5-10.0)
[2021-10-08 06:38] LABS: Alanine Aminotransferase 117 U/L (4-35); Albumin Level 2.9 g/dL (3.5-5.1); Alkaline Phosphatase 232 U/L (38-126); Anion Gap 2 mmol/L (8-16); Aspartate Amino Transferase 93 U/L (14-36); Bilirubin,Total 0.2 mg/dL (0.2-1.3); Blood Urea Nitrogen 22 mg/dL (7-17); Calcium 8.7 mg/dL (8.4-10.2); Carbon Dioxide 23 mmol/L (22-30); Chloride 112 mmol/L (98-107); Estimated CRCL calculation 47 ml/min; Estimated Glomerular Filt Rate 54; Glucose 118 mg/dL (65-110); Sodium 137 mmol/L (137-145)
[2021-10-08] MEDS: ASPIRIN 81 MG ENTERIC TABLET PO (08:49)
[2021-10-08] MEDS: TRIAMCINOLONE ACET 0.5% OINT 15 GM TUBE 1 APPLIC TOPICAL ×3 (08:49→17:29)
[2021-10-08 09:14] LABS: Rapid Plasma Reagin Non-Reactive (NonReactive)
--- NOTE | 2021-10-08 12:46 | WPDPN ---
Progress Note: A&P Assessment and Plan (1) Open facial wound: Code(s): S01.80XA - Unspecified open wound of other part of head, initial encounter Status: Acute Assessment and Plan: No significant change. Continue current TAC to skin tid. Subjective Date/time seen: 10/08/21 12:46 It doesn't feel like anything. Exam Narrative: Site appears about the same. Area unchanged. Less dried exudate today. No significant induration. Non tender. Epithelium still boggy at inferior aspect. Objective Data Vital Signs Vital Signs: Vital Signs - 24 hr 10/07/21 12:51 10/07/21 16:00 10/07/21 20:00 Temperature 97.0 F L 97.3 F L Pulse Rate 81 79 Respiratory Rate 14 16 Blood Pressure 121/57 L 140/74 140/71 Pulse Oximetry 97 97 10/08/21 00:00 10/08/21 04:00 10/08/21 08:00 Temperature 97.4 F L 96.9 F L 96.8 F L Pulse Rate 103 H 80 82 Respiratory Rate 16 16 16 Blood Pressure 194/73 H 141/76 H 140/74 Pulse Oximetry 98 97 97 Intake/Output Intake/Output: Intake & Output 10/05/21 10/06/21 10/07/21 10/08/21 23:59 23:59 23:59 23:59 Intake Total 4227 2180 2240 1200 Balance 4227 2180 2240 1200 Meds/Results Medications: Active Medications Generic Name Dose Route Start Last Admin Trade Name Freq PRN Reason Stop Dose Admin Acetaminophen 650 mg 10/04/21 02:55 10/04/21 10:35 Acetaminophen 325 Mg Tablet PO 650 mg Q4H PRN Administration Mild Pain (1-3) or Fever Aspirin 81 mg 10/04/21 09:00 10/08/21 08:49 Aspirin 81 Mg Enteric Tablet PO 81 mg DAILY GIOVANI Administration Home Med 1 each 10/04/21 21:00 10/07/21 21:11 Home Medication (Paliperidone 3 Mg) BY MOUTH 11/03/21 20:59 1 each HS GIOVANI Administration Cefazolin Sodium 1 gm in 50 mls @ 100 mls/hr 10/06/21 14:00 10/08/21 06:25 Ancef 1 Gm/D5w 50 Ml Pm IVPB Infused Q8HR GIOVANI Infusion Ondansetron HCl 4 mg 10/04/21 02:55 Ondansetron Inj 4 Mg/2 Ml Vial IV PUSH Q4H PRN Nausea Risperidone 1 mg 10/06/21 21:00 10/07/21 21:11 Risperidone 1 Mg Tablet PO 1 mg HS GIOVANI Administration Triamcinolone Acetonide 1 applic 10/07/21 09:00 10/08/21 08:49 Triamcinolone Acet 0.5% Oint 15 Gm Tube TOPICAL 10/09/21 23:59 1 applic TID GIOVANI Administration Radiology Results: ITS Impressions Head CT 10/04/21 07:00 IMPRESSION: 1. Chronic encephalomalacia in left parietal lobe. 2. Mild nonspecific cerebral white matter disease, which likely represents chronic small vessel ischemic disease. 3. Stable ventriculomegaly. Correlate clinically for normal pressure hydrocephalus. Renal Ultrasound 10/04/21 09:36 IMPRESSION: 1. Normal kidneys without hydronephrosis. Head/Neck Ultrasound 10/05/21 06:29 IMPRESSION: 1. Left cheek inflammation. No abscess. Abdomen Ultrasound 10/07/21 15:01 IMPRESSION: 1. Limited examination. 2. Nonvisualization of the gallbladder. 3. Common bile duct dilation. Labs Labs: Laboratory Results - last 24 hr 10/05/21 10/08/21 10/08/21 08:23 05:51 05:51 WBC 6.5 RBC 3.74 L Hgb 10.4 L Hct 31.7 L MCV 84.8 MCH 27.8 MCHC 32.8 RDW 15.5 H Plt Count 311 MPV 9.9 Sodium 137 Potassium 4.0 Chloride 112 H Carbon Dioxide 23 Anion Gap 2 L BUN 22 H Creatinine 1.00 Estim Creat Clear Calc 47 Estimated GFR 54 L Glucose 118 H Calcium 8.7 Total Bilirubin 0.2 AST 93 H ALT 117 H Alkaline Phosphatase 232 H Total Protein 6.0 L Albumin 2.9 L RPR Non-reactive Quality VTE Prophylaxis VTE prophylaxis: mechanical ordered
--- NOTE | 2021-10-08 14:15 | P.PNIM_ITS ---
Progress Note: A&P Assessment and Plan (1) Sepsis: Code(s): A41.9 - Sepsis, unspecified organism Status: Resolved Assessment and Plan: Resolved. Patient septic on presentation evident by marked leukocytosis, t achycardia, tachypnea, and acute renal failure * Source of infection felt to be due to UTI * Tachypnea, tachycardia, and leukocytosis resolved. Patient remains afebrile * Continue IV antibiotics (2) Open facial wound: Code(s): S01.80XA - Unspecified open wound of other part of head, initial encounter Status: Acute Assessment and Plan: Patient with left-sided facial wound draining yellow serous fluid with surrounding erythema, edema * Patient not agreeable to CT for further evaluation. Ultrasound showed left cheek inflammation without abscess * Appreciate Plastic surgery consultation * Wound culture with growth of normal skin guru * Appreciate wound care evaluation * Topical triamcinolone ointment t.i.d. (3) Acute UTI: Code(s): N39.0 - Urinary tract infection, site not specified Status: Acute Assessment and Plan: Urinalysis grossly abnormal at presentation * Urine culture with growth of >100k CFU coagulase negative Staphylococcus * Continue cefazolin based on susceptibility report. Started on 10/06/21. Transition to Keflex on discharge. (4) Schizophrenia: Code(s): F20.9 - Schizophrenia, unspecified Status: Acute Assessment and Plan: Patient had been off of her medications for 1 week and presented with psychosis * Mental status has vastly improved following addition of antipsychotic agents * Appreciate psychiatry evaluation * Continue risperidone 1 mg qHS * Seroquel and ropinirole discontinued * Laboratory workup unremarkable: TSH, B12, folate, vitamin-D within normal limits, HIV, hepatitis panel negative, RPR pending * MMSE score is 28 (5) Rhabdomyolysis: Code(s): M62.82 - Rhabdomyolysis Status: Acute Assessment and Plan: CK was mildly elevated up to 1044. This was following 24 hours of IV hydration, therefore suspect was more significant on presentation * Etiology for this is unclear. Patient's son believes she had a fall which is the likely etiology * CK improved to 200 * IV fluids discontinued 10/06 (6) MUNDO (acute kidney injury): Code(s): N17.9 - Acute kidney failure, unspecified Status: Resolved Assessment and Plan: Resolved. Likely pre renal secondary to severe dehydration * Creatinine normalized with IV fluid hydration * Continue to encourage appropriate oral intake * Renal ultrasound performed showed normal kidneys without hydronephrosis * Avoid nephrotoxins * Monitor renal function closely (7) Transaminitis: Code(s): R74.01 - Elevation of levels of liver transaminase levels Status: Acute Assessment and Plan: Sharp increase in LFTs compared to presentation * Etiology for this is unclear although levels are trending down. May be due to medications, rhabdomyolysis * Hepatitis panel negative * RUQ ultrasound did not visualize gallbladder, suspect history of cholecystectomy though patient has not reported this history. Common bile duct 1.4 cm, grossly normal liver * Continue to monitor closely Subjective Date/time seen: 10/08/21 14:15 Interval history: Date of service: 10/07/2021 Vernoica Torres is a 76-year-old female with a history of schizophrenia, glaucoma, hypertension, and CVA who is seen in follow-up for UTI and left facial wound.
--- NOTE | 2021-10-08 14:15 | PM.IMPN ---
Progress Note: A&P Assessment and Plan (1) Sepsis: Code(s): A41.9 - Sepsis, unspecified organism Status: Resolved Assessment and Plan: Resolved. Patient septic on presentation evident by marked leukocytosis, tachycardia, tachypnea, and acute renal failure Source of infection felt to be due to UTI Tachypnea, tachycardia, and leukocytosis resolved. Patient remains afebrile Continue IV antibiotics (2) Open facial wound: Code(s): S01.80XA - Unspecified open wound of other part of head, initial encounter Status: Acute Assessment and Plan: Patient with left-sided facial wound draining yellow serous fluid with surrounding erythema, edema Patient not agreeable to CT for further evaluation. Ultrasound showed left cheek inflammation without abscess Appreciate Plastic surgery consultation Wound culture with growth of normal skin guru Appreciate wound care evaluation Topical triamcinolone ointment t.i.d. (3) Acute UTI: Code(s): N39.0 - Urinary tract infection, site not specified Status: Acute Assessment and Plan: Urinalysis grossly abnormal at presentation Urine culture with growth of >100k CFU coagulase negative Staphylococcus Continue cefazolin based on susceptibility report. Started on 10/06/21. Transition to Keflex on discharge. (4) Schizophrenia: Code(s): F20.9 - Schizophrenia, unspecified Status: Acute Assessment and Plan: Patient had been off of her medications for 1 week and presented with psychosis Mental status has vastly improved following addition of antipsychotic agents Appreciate psychiatry evaluation Continue risperidone 1 mg qHS Seroquel and ropinirole discontinued Laboratory workup unremarkable: TSH, B12, folate, vitamin-D within normal limits, HIV, hepatitis panel negative, RPR pending MMSE score is 28/30 (5) Rhabdomyolysis: Code(s): M62.82 - Rhabdomyolysis Status: Acute Assessment and Plan: CK was mildly elevated up to 1044. This was following 24 hours of IV hydration, therefore suspect was more significant on presentation Etiology for this is unclear. Patient's son believes she had a fall which is the likely etiology CK improved to 200 IV fluids discontinued 10/06 (6) MUNDO (acute kidney injury): Code(s): N17.9 - Acute kidney failure, unspecified Status: Resolved Assessment and Plan: Resolved. Likely pre renal secondary to severe dehydration Creatinine normalized with IV fluid hydration Continue to encourage appropriate oral intake Renal ultrasound performed showed normal kidneys without hydronephrosis Avoid nephrotoxins Monitor renal function closely (7) Transaminitis: Code(s): R74.01 - Elevation of levels of liver transaminase levels Status: Acute Assessment and Plan: Sharp increase in LFTs compared to presentation Etiology for this is unclear although levels are trending down. May be due to medications, rhabdomyolysis Hepatitis panel negative RUQ ultrasound did not visualize gallbladder, suspect history of cholecystectomy though patient has not reported this history. Common bile duct 1.4 cm, grossly normal liver Continue to monitor closely Subjective Date/time seen: 10/08/21 14:15 Interval history: Date of service: 10/07/2021 Veronica Torres is a 76-year-old female with a history of schizophrenia, glaucoma, hypertension, and CVA who is seen in follow-up for UTI and left facial wound. She is well today. Offers no complaints. Denies any pain from her facial wound. Denies drainage. Denies dysuria, hematuria, urgency, frequency. No fevers, chills, dizziness, lightheadedness. Appetite is good. She is more chatty today tells me that she is worried about the ?legal aspects? for when she is discharged from the hospital. She has talked with her son about a possible guardianship, though she is unsure she would like to proceed wit
[2021-10-08 15:31] LABS: Vancomycin Trough < 5.0 ug/mL (10.0-20.0)
[2021-10-08] MEDS: risperiDONE 1 MG TABLET PO (21:06)
[2021-10-09] VITALS: TEMP 36.2
[2021-10-09 04:00] VITALS: BP 120/52; PULSE 85; RESP 14; TEMP 36.5; O2SAT 97
[2021-10-09 06:14] LABS: Hematocrit 32.2 % (37.0-47.0); Hemoglobin 10.4 g/dL (12.0-15.0)
[2021-10-09 06:20] LABS: Alanine Aminotransferase 105 U/L (4-35); Albumin Level 3.1 g/dL (3.5-5.1); Alkaline Phosphatase 364 U/L (38-126); Anion Gap 4 mmol/L (8-16); Aspartate Amino Transferase 91 U/L (14-36); Bilirubin,Total 0.3 mg/dL (0.2-1.3); Blood Urea Nitrogen 17 mg/dL (7-17); Calcium 8.7 mg/dL (8.4-10.2); Carbon Dioxide 23 mmol/L (22-30); Chloride 111 mmol/L (98-107); Estimated CRCL calculation 47 ml/min; Estimated Glomerular Filt Rate 54; Glucose 101 mg/dL (65-110); Potassium 3.8 mmol/L (3.4-5.0); Sodium 138 mmol/L (137-145)
[2021-10-09] MEDS: ASPIRIN 81 MG ENTERIC TABLET PO (09:10)
[2021-10-09] MEDS: TRIAMCINOLONE ACET 0.5% OINT 15 GM TUBE 1 APPLIC TOPICAL ×2 (09:10→14:00)
[2021-10-09] MEDS: ACETAMINOPHEN 325 MG TABLET 650 MG PO (09:13)
[2021-10-09 12:00] VITALS: BP 118/64; PULSE 84; RESP 16; TEMP 37.2; O2SAT 99
[2021-10-09] MEDS: CEPHALEXIN 500 MG CAPSULE PO (13:59)
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
== END 2021-10-09 15:05 | disposition home or self-care (01) | DRG 690 ==
LOC: ANHED 02:55 → ANH3MEDSUR 07:31
PROVIDERS: Admitting Provider Internal Medicine; Emergency Provider Family Medicine; Visit Provider Physician Assistant
DX: N39.0 Urinary tract infection, site not specified (principal); N17.9 Acute kidney failure, unspecified; T79.6XXA Traumatic ischemia of muscle, initial encounter; B95.7 Other staphylococcus as the cause of diseases classified elsewhere; Z20.822 Contact with and (suspected) exposure to COVID-19; L30.9 Dermatitis, unspecified; T20.16XA Burn of first degree of forehead and cheek, initial encounter; X11.8XXA Contact with other hot tap-water, initial encounter; E86.0 Dehydration; F20.9 Schizophrenia, unspecified; H40.9 Unspecified glaucoma; D72.829 Elevated white blood cell count, unspecified; Z86.73 Personal history of transient ischemic attack (TIA), and cerebral infarction without residual deficits
CPT/HCPCS: 36415; 70450; 76536; 76705; 76775; 80048; 80053; 80061; 80074; 80202; 80307; 81001; 82306; 82550; 82607; 82746; 83036; 83605; 84443; 85014; 85018; 85025; 85027; 86592; 86703; 87070; 87086; 87147; 87181; 87186; 87205; 93005; 96361; 96365; 96366; 96367; 97110; 97116; 97161; 97165; 97530; 97535; 99285; A9270; C9803; G0378; G0432; J0690; J0696; J3370; J7030; U0003; U0005

== ENCOUNTER 2021-12-01 18:57 | Observation (INO) | payer MEDICARE, SELFPAY ==
[2021-12-01] VITALS (23 sets, daily range): BP systolic 97–129; BP diastolic 48–63; PULSE 88–110; RESP 12–30; TEMP 36.7; O2SAT 91–99
--- NOTE | ~2021-12-01 | US_ITS ---
EXAMINATION: US carotid duplex BI DATE: 12/03/2021 09:42 INDICATION: Syncope. Cephalad. Altered mental status. TECHNIQUE: Grayscale, color Doppler, and pulsed Doppler images of the cervical carotid arteries were obtained. The degree of vessel stenosis is placed in one of the following categories: normal, <50%, 5 0-69%, >=70% but less than near-occlusion, near-occlusion, or total occlusion. Note that percent sten osis relative to normal distal artery lumen diameter is indirectly measured from velocity measurement s as described by Jorge, et al. Radiology 2003; [id number]. COMPARISON: None. FINDINGS: RIGHT: The right common carotid artery (CCA) peak systolic velocity (PSV) is 88 cm/s. The right internal car otid artery (ICA) PSV is 91 cm/s. The right ICA end-diastolic velocity (EDV) is 27 cm/s. The right IC A/CCA PSV ratio is 1.0. Grayscale and color Doppler images yield an estimate of <50% diameter reducti on from plaque in the ICA. The external carotid artery (ECA) PSV is 64 cm/s. There is antegrade flow in the right vertebral artery. LEFT: The left CCA PSV is 76 cm/s. The left ICA PSV is 75 cm/s. The left ICA EDV is 26 cm/s. The left ICA/C CA PSV ratio is 1.0. Grayscale and color Doppler images yield an estimate of <50% diameter reduction from plaque in the ICA. The ECA PSV is cm/s. There is antegrade flow in the left vertebral artery. IMPRESSION: 1. <50% stenosis in the right internal carotid artery. 2. <50% stenosis in the left internal carotid artery. Reviewed, dictated and finalized at location A.
--- NOTE | ~2021-12-01 | MR_ITS ---
EXAMINATION: MR brain/brain stem wo con DATE: 12/03/2021 12:54 INDICATION: Syncope and confusion TECHNIQUE: Magnetic resonance imaging (MRI) of the brain and brainstem was performed without intraven ous contrast. Sequences included sagittal and axial T1-weighted SE, axial diffusion-weighted FS SE, a xial T2*-weighted GRE, axial 3D SWAN, axial T2-weighted FLAIR, and axial T2-weighted FSE. Apparent di ffusion coefficient (ADC) maps were created. COMPARISON: Head CT dated 12/01/2021 FINDINGS: Small region of encephalomalacia in the left parietal lobe consistent with chronic infarct. There are no areas of restricted diffusion to suggest acute infarction. No intracranial mass lesion. There are scattered foci of susceptibility artifact throughout the bilateral cerebral hemispheres most promine nt in the left frontal and parietal regions most likely related to products in the setting of chronic microhemorrhage such as seen with hypertension or amyloid angiopathy. There are scattered areas of n onspecific increased T2-weighted signal intensity in the cerebral white matter, predominantly involvi ng the deep and periventricular white matter. There are no intraparenchymal signal abnormalities seen on the other pulse sequences. There is symmetric increased prominence of the ventricles as well as t he sulci near the vertex likely related to mild to moderate age-appropriate cerebral volume loss. The re are no abnormal extra-axial fluid collections. Flow voids are seen in the cerebral arteries on the T2-weighted sequences consistent with their expected patency. Trace bilateral mastoid effusions. Julia nges of bilateral intraocular lens replacement. Visualized orbits and soft tissues are unremarkable. Bilateral hyperostosis frontalis. IMPRESSION: 1. Small old left parietal infarct. No acute intracranial process. 2. Scattered splenic white matter T2 hyperintensity which is within normal limits for age and likely sequela of chronic small vessel ischemic disease. 3. Several scattered foci of susceptibility artifact in the bilateral cerebral hemispheres most promi nent in the left parietal region consistent with sequela of chronic microhemorrhage such as in the se tting of hypertension or amyloid angiopathy. Reviewed, dictated and finalized at location A. IMPRESSION: 1. Small old left parietal infarct. No acute intracranial process. 2. Scattered splenic white matter T2 hyperintensity which is within normal limi ts for age and likely sequela of chronic small vessel ischemic disease. 3. Several scattered foci of susceptibility artifact in the bilateral cerebral hemispheres most prominent in the left parietal region consistent with sequela of chronic microhemorrhage such as in the setting of hypertension or amyloid an giopathy.
--- NOTE | ~2021-12-01 | CT_ITS ---
EXAMINATION: CT brain wo con DATE: 12/01/2021 20:02 INDICATION: altered . TECHNIQUE: Computed tomography (CT) of the head was performed without intravenous contrast. The mA wa s adjusted according to patient size. Iterative reconstruction technique was employed. The dose-lengt h product was 605.33 mGy-cm. COMPARISON: 09/26/2021. FINDINGS: No acute intracranial hemorrhage or extra-axial fluid collection. No hydrocephalus, mass, or herniation. No acute ischemic infarct. Unremarkable dural venous sinus attenuation. No acute osseous abnormality. Trace left mastoid fluid, with stable chronic/postsurgical change, otherwise the aerated spaces are c lear. Severe atrophy. Moderate chronic white matter change. Old left posterior frontal/parietal infarct ember r the vertex. Atherosclerotic intracranial calcifications. Bilateral lens replacements. IMPRESSION: No acute intracranial process. Reviewed, dictated and finalized at location K.
--- NOTE | ~2021-12-01 | XR_ITS ---
EXAM: XR foot LT min 3V DATE: 12/01/2021 19:46 HISTORY: left great toe pain . COMPARISON: None available. FINDINGS: Severely decreased mineralization. No fracture or dislocation. No lytic or blastic lesion. Scattered mild degenerative change. No erosion or periosteal change. Soft tissues within normal limi ts. IMPRESSION: Severe osteopenia. No acute osseous finding in the left foot. Reviewed, dictated and finalized at location K.
--- NOTE | ~2021-12-01 | XR_ITS ---
EXAMINATION: XR chest 1V Exam Date/Time: 12/01/2021 19:40 CDT HISTORY: altered mental status Comparison: 03/08/2016. RESULT: Lines, tubes, and devices: None. Lungs and pleura: Peripheral reticular pattern, more pronounced in the prior examination. Cardiomediastinal silhouette: Stable cardiomediastinal silhouette. Other: No acute osseous or upper abdominal finding. IMPRESSION: Pulmonary findings may reflect mild interstitial pulmonary edema in the appropriate clinical context. Reviewed, dictated and finalized at location K. IMPRESSION: Pulmonary findings may reflect mild interstitial pulmonary edema in the appropr iate clinical context.
--- NOTE | ~2021-12-01 | US_ITS ---
EXAMINATION: US retroperitoneal duplex ltd, US retroperitoneal comp DATE: 12/03/2021 09:54 INDICATION: Acute renal insufficiency. TECHNIQUE: 1. Multiple grayscale and color Doppler images of the kidneys were obtained. 2. Multiple grayscale and pulsed Doppler images of the aorta and renal arteries were obtained. COMPARISON: None. FINDINGS: Kidneys: The right kidney measures 9.9 x 4.6 x 5.0 cm. The left kidney measures 11.7 x 4.7 x 4.6 cm. The kidne ys demonstrate normal echogenicity. There is no hydronephrosis in either kidney. No renal stones aimee ntified. The bladder is normal. Incidentally noted is a shadowing calcified gallstone at the liane he patis within a dilated duct which measures up to 1.3 cm in maximal diameter, likely the common bile d uct Renal arteries/vascular: The aorta peak systolic velocity is 140 cm/s. The right renal artery peak systolic velocity 62 cm/s i n the mid segment, and 21 cm/s in the distal segment. The origin of the right renal artery is obscure d. The left renal artery peak systolic velocity is 160 cm/s in the proximal segment, 98 cm/s in the m id segment, and 37 cm/s in the distal segment. IMPRESSION: 1. Normal kidneys with no hydronephrosis. 2. No Doppler evidence of renal artery stenosis. 3. Gallstone within a dilated duct, likely the common bile duct, which measures up to 1.3 cm in maxim al diameter. Correlate with liver function tests. Reviewed, dictated and finalized at location A. IMPRESSION: 1. Normal kidneys with no hydronephrosis. 2. No Doppler evidence of renal artery stenosis. 3. Gallstone within a dilated duct, likely the common bile duct, which measures up to 1.3 cm in maximal diameter. Correlate with liver function tests.
--- NOTE | 2021-12-01 19:32 | ECG_ITS ---
Measurements Intervals [place] Rate: 99 P: 61 IA: 145 QRS: -6 QRSD: 90 T: 31 QT: 370 QTc: 477 Interpretive Statements SINUS RHYTHM WITH SINUS ARRHYTHMIA LOW QRS VOLTAGE BORDERLINE ECG COMPARED TO ECG 10/05/2021 16:26:13 NO SIGNIFICANT CHANGE Electronically Signed On 12-02-2021 7:11:44 CDT by Chadwick James M.D.
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
--- NOTE | 2021-12-01 20:03 | PC.NURSE ---
Patient report received from ANNA Shetty. All questions answered and care of patient assumed.
[2021-12-01] MEDS: SODIUM CHLORIDE 0.9% IV 1,000 ML 999 ML IV CONT (20:16)
[2021-12-01 20:26] LABS: Basophils Percent Auto 0.3 % (0.2-1.2); Eosinophils Percent Auto 0.2 % (0-4.4); Hematocrit 33.9 % (37.0-47.0); Hemoglobin 11.2 g/dL (12.0-15.0); Immature Granulocyte Absolute 0.06 K/mm3 (0.00-0.031); Immature Granulocyte Percent A 0.5 % (0-0.5); Lymphocytes Absolute Auto 1.14 K/mm3 (0.9-3.2); Lymphocytes Percent Auto 9.2 % (18.3-44.2); Mean Corpuscular Hemoglobin 28.9 pg (26-34); Mean Corpuscular Volume 87.4 fl (80-100); Mean Platelet Volume 9.2 fl (7.4-10.4); Monocytes Absolute Auto 0.7 K/mm3 (0.1-0.6); Monocytes Percent Auto 5.6 % (2.6-8.5); Neutrophils Absolute Auto 10.5 K/mm3 (1.3-6.7); Neutrophils Percent Auto 84.2 % (45.5-73.1); Platelet Count Result 361 k/mm3 (150-375); Red Blood Count 3.88 M/mm3 (4.2-5.4); Red Cell Distribution Width 14.9 % (11.5-14.5); White Blood Count 12.4 K/mm3 (4.5-10.0)
[2021-12-01 20:32] LABS: Acetaminophen < 10 ug/mL (10-30); Ammonia < 9 umol/L (9-30); Ethanol < 10 mg/dL (<10); Salicylate < 1.0 mg/dL (2-20)
[2021-12-01 20:33] LABS: Alanine Aminotransferase 17 U/L (6-35); Albumin Level 3.6 g/dL (3.5-5.1); Alkaline Phosphatase 102 U/L (38-126); Anion Gap 8 mmol/L (8-16); Aspartate Amino Transferase 21 U/L (14-36); Bilirubin,Total 0.5 mg/dL (0.2-1.3); Blood Urea Nitrogen 25 mg/dL (7-17); Calcium 9.3 mg/dL (8.4-10.2); Carbon Dioxide 17 mmol/L (22-30); Chloride 114 mmol/L (98-107); Creatine Kinase 69 U/L (30-135); Estimated CRCL calculation 21 ml/min; Estimated Glomerular Filt Rate 22; Glucose 178 mg/dL (65-110); INR 1.1; Partial Thromboplastin Time 27.1 SECONDS (22.3-36.8); Potassium 3.4 mmol/L (3.4-5.0); Prothrombin Time 14.1 Seconds (11.1-14.7); Sodium 139 mmol/L (137-145)
[2021-12-01 20:45] LABS: Troponin I 0.021 ng/mL (0.000-0.034)
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
[2021-12-01 20:58] LABS: SARS-CoV-2 RNA PCR Negative
--- NOTE | 2021-12-01 22:59 | ADMGEN ---
This patient, Veronica Torres, was admitted to [address] [place] [address] Room 303-01. Patient/family oriented to hospital policies and general routines including ID bracelet, bed and alarms, visiting hours, pain management, procedures, bathroom and other care routines, personal items, smoking policy, room service/diet, and visiting hours. Information on how to activate the Rapid Response Team has been discussed. Patient/Family are encouraged to report perceived risks to care and to ask questions if they do not understand what they are told or what they should do.
[2021-12-01] MEDS: SODIUM CHLORIDE 0.9% IV 1,000 ML 150 ML IV CONT (23:57)
[2021-12-02 00:13] VITALS: BMI 29.2
[2021-12-02 06:00] VITALS: BP 143/69; PULSE 78; RESP 16; TEMP 36; O2SAT 99
[2021-12-02 06:22] LABS: Anion Gap 4 mmol/L (8-16); Blood Urea Nitrogen 24 mg/dL (7-17); Calcium 8.7 mg/dL (8.4-10.2); Carbon Dioxide 23 mmol/L (22-30); Chloride 115 mmol/L (98-107); Estimated CRCL calculation 30 ml/min; Estimated Glomerular Filt Rate 31; Glucose 110 mg/dL (65-110); Potassium 3.2 mmol/L (3.4-5.0); Sodium 142 mmol/L (137-145)
[2021-12-02] MEDS: SODIUM CHLORIDE 0.9% IV 1,000 ML 150 ML IV CONT (06:40)
--- NOTE | 2021-12-02 07:52 | PM.IMPN ---
Progress Note: A&P Assessment and Plan (1) Acute kidney injury: Code(s): N17.9 - Acute kidney failure, unspecified Status: Acute Assessment and Plan: Unclear etiology. Patient reports decreased po intake. UA c/w infection but no urinary sx. Creatinine is improving. -Renal ultrasound -Continue IVF for now change to LR at 100 cc/hr time out after 1L -PT/OT (2) Transaminitis: Code(s): R74.01 - Elevation of levels of liver transaminase levels Status: Acute Assessment and Plan: UDS negative. Tylenol negative. ETOH negative. -HBV, HCV, HAV -HIV (3) Schizophrenia: Code(s): F20.9 - Schizophrenia, unspecified Status: Acute Assessment and Plan: Risperidone 1 mg po hs. Continue. (4) Anemia: Code(s): D64.9 - Anemia, unspecified Status: Acute Assessment and Plan: MCV 89. -Iron studies -Retic count Plan Additional Plan Heparin DVT prophylaxis. Subjective Date/time seen: 12/02/21 07:52 Patient says her son is visiting her in the hotel room where she has been living since June 2021. She says she remember getting into the bathtub to take a bath but thinks she passed out. Prior to getting in the bathtub she says she was just sitting in her hotel room watching television, which is what she does most days. She eat food that the hotel sells in the lobby for her meals. Says for the past few days she has been feeling ill and has had poor oral intake. She denies fever, chills, cough, sore throat, nausea, vomiting, diarrhea, abdominal pain. Review of Systems ENT: Denies nasal congestion and Denies nasal discharge Respiratory: Respiratory: Denies dyspnea Musculoskeletal: Musculoskeletal: Denies myalgias Exam Narrative: GENERAL: NAD, cooperative HEENT: Normocephalic, atraumatic, anicteric, nares clear, oropharynx moist and clear, dentition normal NECK: Supple CV: Normal S1, S2, RRR, No MRG RESP: CTAB, Normal work of breathing. Abdomen: Soft, non-tender, non-distended, +BS EXTREMITIES: Warm and well perfused, no clubbing, cyanosis, or edema. SKIN: warm, dry and intact. NEURO: CN 2-12 grossly intact. Psych: Flat affect Objective Data Vital Signs Vital Signs: Vital Signs - 24 hr 12/01/21 19:06 12/01/21 19:19 12/01/21 19:30 Temperature 98.0 F Pulse Rate 110 H 102 H 109 H Respiratory Rate 20 17 26 H Blood Pressure 110/60 Pulse Oximetry 96 97 95 Oxygen Delivery Room Air 12/01/21 19:32 12/01/21 19:33 12/01/21 20:14 Temperature Pulse Rate 106 H 106 H 102 H Respiratory Rate 30 H 26 H 23 H Blood Pressure 129/54 L Pulse Oximetry 96 96 97 Oxygen Delivery 12/01/21 20:15 12/01/21 20:16 12/01/21 20:30 Temperature Pulse Rate 101 H 99 100 Respiratory Rate 28 H 29 H 28 H Blood Pressure 97/49 L Pulse Oximetry 96 93 Oxygen Delivery 12/01/21 20:31 12/01/21 20:57 12/01/21 21:00 Temperature Pulse Rate 101 H 98 107 H Respiratory Rate 21 H 21 H 28 H Blood Pressure 102/48 L Pulse Oximetry 96 97 95 Oxygen Delivery 12/01/21 21:01 12/01/21 21:02 12/01/21 21:15 Temperature Pulse Rate 109 H 109 H 106 H Respiratory Rate 19 18 25 H Blood Pressure 118/56 L Pulse Oximetry 96 96 91 Oxygen Delivery 12/01/21 21:20 12/01/21 21:22 12/01/21 21:30 Temperature Pulse Rate 102 H 100 96 Respiratory Rate 12 25 H 24 H Blood Pressure 103/52 L 107/52 L Pulse Oximetry 99 97 97 Oxygen Delivery 12/01/21 21:31 12/01/21 21:45 12/01/21 21:46 Temperature Pulse Rate 96 91 88 Respiratory Rate 25 H 21 H 23 H Blood Pressure 113/53 L 118/62 Pulse Oximetry 97 97 97 Oxygen Delivery 12/01/21 22:00 12/01/21 22:01 12/02/21 06:00 Temperature 96.8 F L Pulse Rate 89 88 78 Respiratory Rate 23 H 22 H 16 Blood Pressure 129/63 143/69 H Pulse Oximetry 98 97 99 Oxygen Delivery Intake/Output Intake/Output: Intake & Output 11/29/21 11/30/21 12/01/21 12/02/21
[2021-12-02 08:01] LABS: Basophils Absolute Auto 0.1 K/mm3 (0.0-0.1); Basophils Percent Auto 0.5 % (0.2-1.2); Eosinophils Absolute Auto 0.1 K/mm3 (0-0.3); Eosinophils Percent Auto 0.6 % (0-4.4); Hematocrit 32.2 % (37.0-47.0); Hemoglobin 10.3 g/dL (12.0-15.0); Immature Granulocyte Absolute 0.04 K/mm3 (0.00-0.031); Immature Granulocyte Percent A 0.4 % (0-0.5); Lymphocytes Absolute Auto 2.68 K/mm3 (0.9-3.2); Lymphocytes Percent Auto 24.3 % (18.3-44.2); Mean Corpuscular Hemoglobin 28.5 pg (26-34); Mean Platelet Volume 9.8 fl (7.4-10.4); Monocytes Absolute Auto 0.8 K/mm3 (0.1-0.6); Monocytes Percent Auto 7.2 % (2.6-8.5); Neutrophils Absolute Auto 7.4 K/mm3 (1.3-6.7); Platelet Count Result 342 k/mm3 (150-375); Red Blood Count 3.62 M/mm3 (4.2-5.4)
[2021-12-02 08:26] LABS: Creatine Kinase 69 U/L (30-135)
[2021-12-02 08:36] LABS: NT Pro B Type Natriuretic Pept 493 pg/mL (5-100)
[2021-12-02] MEDS: POTASSIUM CHLORIDE INJ 40 MEQ in SODIUM CHLORIDE 0.9% IV 500 ML 130 MEQ IVPB (09:39)
--- NOTE | 2021-12-02 10:10 | PCCCNOTE ---
On 12/02/21, the student, [Nella Mehta], provided care and completed [facility] documentation on this patient. I have reviewed the student's documentation and agree with the findings.
[2021-12-02 10:12] LABS: Appearance Urine Clear (Clear); Bilirubin Urine Negative (Negative); Blood Urine Trace-lysed (Negative); Color Urine Yellow (Yellow); Glucose Urine UA Negative (Negative); Ketones Urine Negative (Negative); Leukocyte Esterase Ur 2+ LEU/UL (Negative); Nitrate Urine Positive (Negative); Protein Urine 1+ mg/dL (Negative); Specific Grav Ur 1.025 (1.001-1.035); Urobilinogen Urine 0.2 mg/dL (<2.0); pH Urine 5.5 (5.0-9.0)
[2021-12-02 10:20] LABS: Add Urine Microscopic? YES; Bacteria Urine 1+ /hpf; Mucus Urine Rare /lpf
[2021-12-02 10:30] LABS: Amphetamine Screen Urine Negative (Negative); Barbiturate Screen Urine Negative (Negative); Benzodiazepines Screen Urine Negative (Negative); Cannabinoid Screen Urine Negative (Negative); Cocaine Screen Urine Negative (Negative); Methadone Screen Urine Negative (Negative); Opiate Screen Urine Negative (Negative); Phencyclidine Screen Urine Negative (Negative)
[2021-12-02 10:56] LABS: Amphetamine Screen Urine Negative (Negative); Barbiturate Screen Urine Negative (Negative); Benzodiazepines Screen Urine Negative (Negative); Methadone Screen Urine Negative (Negative)
[2021-12-02 10:57] LABS: Cannabinoid Screen Urine Negative (Negative); Cocaine Screen Urine Negative (Negative); Opiate Screen Urine Negative (Negative); Phencyclidine Screen Urine Negative (Negative)
[2021-12-02 14:29] VITALS: BP 130/66; PULSE 84; RESP 20; TEMP 36.3; O2SAT 98
[2021-12-02] MEDS: LACTATED RINGERS 1,000 ML 100 ML IV CONT (15:34)
[2021-12-02 20:00] VITALS: PULSE 80; RESP 18; O2SAT 100
[2021-12-02] MEDS: ASPIRIN 81 MG ENTERIC TABLET PO (21:30)
[2021-12-02] MEDS: risperiDONE 1 MG TABLET PO (21:30)
[2021-12-02] MEDS: HEPARIN SODIUM 5,000 UNITS/ML VIAL 5000 UNITS SUB-Q (21:31)
[2021-12-02] MEDS: ATORVASTATIN 40 MG TABLET PO (21:31)
[2021-12-02] MEDS: ACETAMINOPHEN 325 MG TABLET 650 MG PO (21:31)
[2021-12-02 21:49] VITALS: BP 137/90; PULSE 80; RESP 18; TEMP 36.4; O2SAT 100
--- NOTE | 2021-12-03 | ECHO_ITS ---
Patient Info Name: Veronica Torres Age: 76 years : 1945 Gender: Female Ht: 66 in Wt: 180 lbs BSA: 1.97 m2 HR: 88 bpm BP: 155 / 92 mmHg Technical Quality: Fair Exam Date: 12/03/2021 11:31 AM Exam Location: [facility] Patient Status: Inpatient Admit Date: 12/01/2021 Staff Ordering Physician: Trent Galvez Field Reimbursement Manager: Kj Colon RDCS, RT Attending Provider: Pedro Hassan MD Referring Physician: Lenny GILL; Exam Type: CA echo doppler w bubble study Study Info Indications R55 - Syncope and collapse Complete two-dimensional, color flow and Doppler transthoracic echocardiogram is performed with agitated saline. Summary 1. Left ventricular chamber dimension is normal. 2. Left ventricular systolic function is normal, estimated at 60-65%. 3. The left ventricular diastolic function is grade I diastolic dysfunction. 4. E/e' 15 is elevated. 5. There is mild aortic valve sclerosis. 6. The mitral valve has moderately calcified annulus. Left Ventricle E/e' 15 is elevated. Left ventricular chamber dimension is normal. Left ventricular systolic function is normal, estimated at 60-65%. The left ventricular diastolic function is grade I diastolic dysfunction. Right Ventricle Right ventricular systolic function is normal and with normal TAPSE 2.1 cm. Right ventricular chamber dimension is normal. Left Atria Left atrial chamber dimension is normal. Right Atria Right atrial chamber dimension is normal. Atrial Septum Agitated saline injection with and without valsalva maneuver opacified right side cardiac chamber without shunt to left side cardiac chambers. Interatrial septum not well visualized by 2D and agitated saline imaging. Aortic Valve The aortic valve is trileaflet. There is mild aortic valve sclerosis. There is no aortic valve stenosis. There is no aortic valve regurgitation. Pulmonic Valve There is no pulmonic regurgitation. Mitral Valve The mitral valve has moderately calcified annulus. There is no mitral valve stenosis. There is no mitral valve regurgitation. Tricuspid Valve There is no tricuspid valve regurgitation. Pericardium/Pleural There is no pericardial effusion. Inferior Vena Cava Normal inferior vena cava with >50% collapse upon inspiration consistent with normal right atrial pressure, 5 mmHg. Aorta The aortic root size at the sinus of Valsalva is normal. Left Ventricular Outflow Tract Name Value Normal LVOT 2D LVOT Diameter 2.0 cm LVOT Doppler LVOT Peak Gradient 5 mmHg LVOT Mean Gradient 3 mmHg LVOT VTI 25 cm LVOT VTI/AV VTI Ratio 0.7 LVOT Stroke Volume 78 ml LVOT CO 6.8 l/min LVOT CI 3.5 l/min/m2 Mitral Valve Name Value Normal
[2021-12-03 05:44] VITALS: BP 155/92; PULSE 90; RESP 18; TEMP 36.4; O2SAT 98
[2021-12-03 06:19] LABS: Immature Reticulocyte Fraction 19.5 % (3.0-15.9); Reticulocyte Hemoglobin Conten 32.1 pg (28.2-35.7); Reticulocyte Percent 2.09 % (0.7-4.3); Reticulocytes Absolute 0.08 B/L (32.2-175.7)
[2021-12-03 07:38] LABS: Iron 53 ug/dL (37-170)
[2021-12-03 07:47] LABS: Percent Iron Saturation 20 % (20-50)
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
--- NOTE | 2021-12-03 07:50 | PM.IMPN ---
Progress Note: A&P Assessment and Plan (1) Acute kidney injury: Code(s): N17.9 - Acute kidney failure, unspecified Status: Acute Assessment and Plan: Current BUN/Cr 24/1.60 Baseline which is limited seems to be 0.90-1.10 Could be related to dehydration as she looks dry upon exam repeat labs in the am avoid nephrotoxic medications Urine culture is pending Get urine studies (2) Schizophrenia: Code(s): F20.9 - Schizophrenia, unspecified Status: Acute Assessment and Plan: Is having delusion and hallucination Does not seem to be taking her medications Continue risperidone, which was started at last admission Consider psych consult (3) Anemia: Code(s): D64.9 - Anemia, unspecified Status: Acute Assessment and Plan: H/H stable at 10.3/32.2 Anemia labs do not indicate supplementation at this time Continue to trend labs Looks to anemia of chronic disease Could also be from fluid resuscitation transfuse if hgb drops below 7 (4) Hypertension: Code(s): I10 - Essential (primary) hypertension Status: Acute Assessment and Plan: BP is 155/92 Dose not appear she is on any home medications Continue to trend BP Consider adding medications if not controlled Could be elevated due to delusions and hallucination (5) Syncope: Code(s): R55 - Syncope and collapse Status: Acute Assessment and Plan: Reports passing out, lightheaded and dizziness Head ct shows no acute intracranial abnormality MRI of the brain ordered Carotid doppler ordered Echo ordered PT/OT Orthostatic BP Could from uncontrolled hypertension, medication induced, dehydration Consider neurology consult (6) CHF (congestive heart failure): Code(s): I50.9 - Heart failure, unspecified Status: Acute Assessment and Plan: BNP slightly elevated at 493 Echo ordered and pending BLE edema noted Chest xray indicates pulmonary edema No notable shortness of breath No acute exacerbation at this time Consider adding a little bit of lasix Could be related to dehydration as well Additional Plan Heparin DVT prophylaxis. Time Spent With Patient Time with patient: Greater than 35 minutes Subjective Date/time seen: 12/03/21 07:50 Interval history: 12/03/21 0750 Patient seems relatively unstable. When I walked into the room to talk to the patient patient said she is little bit stressed today and she is really worried about the money. She also states that when she got lightheaded and dizzy and became syncopal she stated that she went outside to smoke a cigarette with her son even though she does not smoke and got lightheaded and dizzy and when she did he was able to lower her to a chair. However looking to the other stories the patient has a different story each time. She did state that she is very hard of hearing however has had no hearing changes over the last few days. She also states that she has peripheral neuropathy in the bilateral lower extremities and she just takes a few steps before she gets very dizzy and wants to fall. Patient states that she has a hard time with balance in general. She also stated that she has been having some nausea however it just comes and goes and says is very intermittent. I asked patient about her medications she stated that she is trying to move to [place] where she is trying to get a different doctors restart her medications however it seems like she is not taking her medications at all looking at her last refills it looks like she did get her medications refilled since early October. She also has a very pressured speech and some word-finding difficulties. Review of systems is unreliable at this point since the patient seems to be having delusions and hallucinations. However she did denied chest pain, shortness of breath, vomiting, diar
--- NOTE | 2021-12-03 08:37 | PCOTNOTE ---
Attempted OT evaluation. Patient is currently being taken off the unit for testing, will follow.
[2021-12-03 08:54] LABS: Hepatitis B Surface Antigen Negative (Negative)
[2021-12-03 09:00] LABS: HAV RESULT Negative (Negative); Hepatitis B Core IgM Result Negative (Negative)
[2021-12-03 09:02] LABS: HIV 1/2 Ab P24 Ag Result Negative (Negative)
[2021-12-03 09:06] LABS: Vitamin D 25 Hydroxy 26.1 ng/mL
[2021-12-03 09:12] LABS: Hepatitis C Virus Antibody Negative (Negative)
[2021-12-03 09:55] LABS: Folic Acid 15.3 ng/mL (2.76->20)
[2021-12-03 09:56] VITALS: RESP 18; O2SAT 97
[2021-12-03] MEDS: HEPARIN SODIUM 5,000 UNITS/ML VIAL 5000 UNITS SUB-Q ×2 (09:56→21:11)
[2021-12-03 12:50] LABS: Creatinine Urine 28.6 mg/dL; Urea Random Urine 203 MG/DL
[2021-12-03 13:00] LABS: Sodium Urine Random 164 meq/L
[2021-12-03] MEDS: DICLOFENAC SODIUM 1% 100 GM GEL (*BKC) 1 APPLIC TOPICAL ×2 (13:13→16:54)
[2021-12-03 14:00] VITALS: BP 149/76; PULSE 90; RESP 22; TEMP 37; O2SAT 99
[2021-12-03] MEDS: ASPIRIN 81 MG ENTERIC TABLET PO (21:11)
[2021-12-03] MEDS: risperiDONE 1 MG TABLET PO (21:11)
[2021-12-03] MEDS: ATORVASTATIN 40 MG TABLET PO (21:11)
[2021-12-03 21:44] VITALS: BP 172/76; PULSE 84; RESP 17; TEMP 36.7; O2SAT 97
[2021-12-04 02:12] VITALS: O2SAT 97
[2021-12-04 05:49] VITALS: BP 170/50; PULSE 82; RESP 17; TEMP 37; O2SAT 98
[2021-12-04 06:42] LABS: Basophils Absolute Auto 0.1 K/mm3 (0.0-0.1); Eosinophils Absolute Auto 0.3 K/mm3 (0-0.3); Hematocrit 33.7 % (37.0-47.0); Hemoglobin 11.2 g/dL (12.0-15.0); Immature Granulocyte Absolute 0.02 K/mm3 (0.00-0.031); Immature Granulocyte Percent A 0.3 % (0-0.5); Lymphocytes Absolute Auto 2.15 K/mm3 (0.9-3.2); Lymphocytes Percent Auto 30.5 % (18.3-44.2); Mean Corpuscular HGB Conc 33.2 g/dl (32-36); Mean Corpuscular Hemoglobin 28.5 pg (26-34); Mean Corpuscular Volume 85.8 fl (80-100); Mean Platelet Volume 9.6 fl (7.4-10.4); Monocytes Absolute Auto 0.5 K/mm3 (0.1-0.6); Neutrophils Percent Auto 57.2 % (45.5-73.1); Platelet Count Result 361 k/mm3 (150-375); Red Blood Count 3.93 M/mm3 (4.2-5.4); Red Cell Distribution Width 14.6 % (11.5-14.5); White Blood Count 7.1 K/mm3 (4.5-10.0)
[2021-12-04 06:56] LABS: Alanine Aminotransferase 25 U/L (6-35); Albumin Level 3.5 g/dL (3.5-5.1); Alkaline Phosphatase 84 U/L (38-126); Anion Gap 6 mmol/L (8-16); Aspartate Amino Transferase 22 U/L (14-36); Bilirubin,Total 0.6 mg/dL (0.2-1.3); Blood Urea Nitrogen 19 mg/dL (7-17); Carbon Dioxide 23 mmol/L (22-30); Chloride 113 mmol/L (98-107); Estimated CRCL calculation 42 ml/min; Estimated Glomerular Filt Rate 48; Glucose 105 mg/dL (65-110); Potassium 3.7 mmol/L (3.4-5.0); Sodium 142 mmol/L (137-145)
[2021-12-04 08:00] VITALS: O2SAT 98
--- NOTE | 2021-12-04 10:15 | PM.IMPN ---
Progress Note: A&P Assessment and Plan (1) Acute kidney injury: Code(s): N17.9 - Acute kidney failure, unspecified Status: Acute Assessment and Plan: Current BUN/Cr 19/1.10 Baseline which is limited seems to be 0.90-1.10 Could be related to dehydration as she looks dry upon exam repeat labs in the am avoid nephrotoxic medications Urine culture positive for Enterobacter cloacae complex Get urine studies (2) Schizophrenia: Code(s): F20.9 - Schizophrenia, unspecified Status: Acute Assessment and Plan: Is having delusion and hallucination Does not seem to be taking her medications Continue risperidone, which was started at last admission Consider psych consult (3) Anemia: Code(s): D64.9 - Anemia, unspecified Status: Acute Assessment and Plan: H/H stable at 11.2/33.7 Anemia labs do not indicate supplementation at this time Continue to trend labs Looks to anemia of chronic disease Could also be from fluid resuscitation transfuse if hgb drops below 7 (4) Hypertension: Code(s): I10 - Essential (primary) hypertension Status: Acute Assessment and Plan: BP is 170/50 Dose not appear she is on any home medications Continue to trend BP Consider adding medications if not controlled Could be elevated due to delusions and hallucination probably related to hospitalization and also new life changes coming her way (5) Syncope: Code(s): R55 - Syncope and collapse Status: Acute Assessment and Plan: Reports passing out, lightheaded and dizziness Head ct shows no acute intracranial abnormality 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, no acute intracranial process, small microhemorrhage related to hypertension Carotid doppler <50% stenosis bilaterally Echo EF 60-65% with a grade 1 diastolic dysfunction PT/OT Orthostatic BP negative Could from uncontrolled hypertension, medication induced, dehydration Consider neurology consult (6) CHF (congestive heart failure): Code(s): I50.9 - Heart failure, unspecified Status: Acute Assessment and Plan: BNP slightly elevated at 493 Echo EF 60-65% with a grade 1 diastolic dysfunction BLE edema noted Chest xray indicates pulmonary edema No notable shortness of breath No acute exacerbation at this time Consider adding a little bit of lasix Could be related to dehydration as well (7) UTI (urinary tract infection): Code(s): N39.0 - Urinary tract infection, site not specified Status: Acute Assessment and Plan: Urine culture grew Enterobacter cloacae complex DC on cefdinir PO for 7 days Trend urine output Additional Plan Heparin DVT prophylaxis. Time Spent With Patient Time with patient: Greater than 35 minutes Subjective Date/time seen: 12/05/21 06:38 Interval history: 12/04/21 1015 Patient was sitting in the chair dressed. She is still fairly anxious, however, she knows that she is moving shortly after discharge. She is denies chest pain, shortness of breath, nausea, vomiting, dirrhea, constipation, weakness, or fatigue. Urine culture was positive for a UTI. Antibiotics started. This could also be the reason for the further confusion. 12/03/21 0750 Patient seems relatively unstable. When I walked into the room to talk to the patient patient said she is little bit stressed today and she is really worried about the money. She also states that when she got lightheaded and dizzy and became syncopal she stated that she went outside to smoke a cigarette with her son even though she does not smoke and got lightheaded and dizzy and when she did he was able to lower her to a chair. However looking to the other stories the patient has a different story each time. She did state that she is very hard of hearing however has had no hearing changes ov
--- NOTE | 2021-12-04 10:15 | P.PNIM_ITS ---
Progress Note: A&P Assessment and Plan (1) Acute kidney injury: Code(s): N17.9 - Acute kidney failure, unspecified Status: Acute Assessment and Plan: * Current BUN/Cr 19/1.10 * Baseline which is limited seems to be 0.90-1.10 * Could be related to dehydration as she looks dry upon exam * repeat labs in the am * avoid nephrotoxic medications * Urine culture positive for Enterobacter cloacae complex * Get urine studies (2) Schizophrenia: Code(s): F20.9 - Schizophrenia, unspecified Status: Acute Assessment and Plan: * Is having delusion and hallucination * Does not seem to be taking her medications * Continue risperidone, which was started at last admission * Consider psych consult (3) Anemia: Code(s): D64.9 - Anemia, unspecified Status: Acute Assessment and Plan: * H/H stable at 11.2/33.7 * Anemia labs do not indicate supplementation at this time * Continue to trend labs * Looks to anemia of chronic disease * Could also be from fluid resuscitation * transfuse if hgb drops below 7 (4) Hypertension: Code(s): I10 - Essential (primary) hypertension Status: Acute Assessment and Plan: * BP is 170/50 * Dose not appear she is on any home medications * Continue to trend BP * Consider adding medications if not controlled * Could be elevated due to delusions and hallucination * probably related to hospitalization and also new life changes coming her way (5) Syncope: Code(s): R55 - Syncope and collapse Status: Acute Assessment and Plan: * Reports passing out, lightheaded and dizziness * Head ct shows no acute intracranial abnormality * 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, no acute intracranial process, small microhemorrhage related to hypertension * Carotid doppler <50% stenosis bilaterally * Echo EF 60-65% with a grade 1 diastolic dysfunction * PT/OT * Orthostatic BP negative * Could from uncontrolled hypertension, medication induced, dehydration * Consider neurology consult (6) CHF (congestive heart failure): Code(s): I50.9 - Heart failure, unspecified Status: Acute Assessment and Plan: * BNP slightly elevated at 493 * Echo EF 60-65% with a grade 1 diastolic dysfunction * BLE edema noted * Chest xray indicates pulmonary edema * No notable shortness of breath * No acute exacerbation at this time * Consider adding a little bit of lasix * Could be related to dehydration as well (7) UTI (urinary tract infection): Code(s): N39.0 - Urinary tract infection, site not specified Status: Acute Assessment and Plan: * Urine culture grew Enterobacter cloacae complex * DC on cefdinir PO for 7 days * Trend urine output Additional Plan Heparin DVT prophylaxis. Time Spent With Patient Time with patient: Greater than 35 minutes Subjective Date/time seen: 12/05/21 06:38 Interval history: 12/04/21 1015 Patient was sitting in the chair dressed. She is still fairly anxious, however, she knows that she is moving shortly after discharge. She is denies chest pain, shortness of breath, nausea, vomiting, dirrhea, constipation, weakness, or fatigue. Urine culture was positive for a UTI. Antibiotics started. This could also be the reason for the further confusion. 12/03/21 0750 Patient seems relative
--- NOTE | 2021-12-04 11:15 | PM.DS ---
DS: Admitting Diagnosis Discharge Date 12/05/21 1115 Admitting Diagnosis UTI/Acute renal failure/Psychosis DS: Discharge Diagnosis Discharge Diagnosis (1) Acute kidney injury: Code(s): N17.9 - Acute kidney failure, unspecified Status: Acute Assessment and Plan: Current BUN/Cr 24/1.10 Baseline which is limited seems to be 0.90-1.10 Could be related to dehydration as she looks dry upon exam repeat labs in the am avoid nephrotoxic medications Urine culture is pending Get urine studies (2) Schizophrenia: Code(s): F20.9 - Schizophrenia, unspecified Status: Acute Assessment and Plan: Is having delusion and hallucination Does not seem to be taking her medications Continue risperidone, which was started at last admission Consider psych consult (3) Anemia: Code(s): D64.9 - Anemia, unspecified Status: Acute Assessment and Plan: H/H stable at 11.2/33.7 Anemia labs do not indicate supplementation at this time Continue to trend labs Looks to anemia of chronic disease Could also be from fluid resuscitation transfuse if hgb drops below 7 (4) Hypertension: Code(s): I10 - Essential (primary) hypertension Status: Acute Assessment and Plan: BP is 170/50 Dose not appear she is on any home medications Continue to trend BP Consider adding medications if not controlled Could be elevated due to delusions and hallucination probably related to hospitalization and also new life changes coming her way (5) Syncope: Code(s): R55 - Syncope and collapse Status: Acute Assessment and Plan: Reports passing out, lightheaded and dizziness Head ct shows no acute intracranial abnormality 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, no acute intracranial process, small microhemorrhage related to hypertension Carotid doppler <50% stenosis bilaterally Echo EF 60-65% with a grade 1 diastolic dysfunction PT/OT Orthostatic BP negative Could from uncontrolled hypertension, medication induced, dehydration Consider neurology consult (6) CHF (congestive heart failure): Code(s): I50.9 - Heart failure, unspecified Status: Acute Assessment and Plan: BNP slightly elevated at 493 Echo EF 60-65% with a grade 1 diastolic dysfunction BLE edema noted Chest xray indicates pulmonary edema No notable shortness of breath No acute exacerbation at this time Consider adding a little bit of lasix Could be related to dehydration as well (7) UTI (urinary tract infection): Code(s): N39.0 - Urinary tract infection, site not specified Status: Acute Assessment and Plan: Urine culture grew Enterobacter cloacae complex DC on cefdinir PO for 7 days Trend urine output DS: Summary Hospital Course Hospital Course: Patient is a 76-year-old female with a past medical history of hypertension, schizophrenia, CVA who presented to the ED after she was found over flowing her bathtub and semiconscious in her bath time. Patient was experiencing delusions and hallucinations. Patient has many stories of why she is here. However the true story is the patient quit taking her medications. UA did come back positive and grew Enterobacter Colace complex. Patient was also worked up for syncope. Head CT was normal. Brain CT showed an old infarct with microhemorrhages related to hypertension, carotid Dopplers were less than 50 % stenosed. Echo was 60 65% with grade 1 diastolic dysfunction. Patient did not seem to be in acute exacerbation of CHF. I did talk to her son today about discharge. Patient's son stated that when she does stop taking her medications that she does get the voices and confabulations. He is post be taking the patient to [place] where he has are set up for a assisted living + a psychiatric care physician for further treatment of h
--- NOTE | 2021-12-04 11:15 | P.DS_ITS ---
DS: Admitting Diagnosis Discharge Date 12/05/21 1115 Admitting Diagnosis UTI/Acute renal failure/Psychosis DS: Discharge Diagnosis Discharge Diagnosis (1) Acute kidney injury: Code(s): N17.9 - Acute kidney failure, unspecified Status: Acute Assessment and Plan: * Current BUN/Cr 24/1.10 * Baseline which is limited seems to be 0.90-1.10 * Could be related to dehydration as she looks dry upon exam * repeat labs in the am * avoid nephrotoxic medications * Urine culture is pending * Get urine studies (2) Schizophrenia: Code(s): F20.9 - Schizophrenia, unspecified Status: Acute Assessment and Plan: * Is having delusion and hallucination * Does not seem to be taking her medications * Continue risperidone, which was started at last admission * Consider psych consult (3) Anemia: Code(s): D64.9 - Anemia, unspecified Status: Acute Assessment and Plan: * H/H stable at 11.2/33.7 * Anemia labs do not indicate supplementation at this time * Continue to trend labs * Looks to anemia of chronic disease * Could also be from fluid resuscitation * transfuse if hgb drops below 7 (4) Hypertension: Code(s): I10 - Essential (primary) hypertension Status: Acute Assessment and Plan: * BP is 170/50 * Dose not appear she is on any home medications * Continue to trend BP * Consider adding medications if not controlled * Could be elevated due to delusions and hallucination * probably related to hospitalization and also new life changes coming her way (5) Syncope: Code(s): R55 - Syncope and collapse Status: Acute Assessment and Plan: * Reports passing out, lightheaded and dizziness * Head ct shows no acute intracranial abnormality * 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, no acute intracranial process, small microhemorrhage related to hypertension * Carotid doppler <50% stenosis bilaterally * Echo EF 60-65% with a grade 1 diastolic dysfunction * PT/OT * Orthostatic BP negative * Could from uncontrolled hypertension, medication induced, dehydration * Consider neurology consult (6) CHF (congestive heart failure): Code(s): I50.9 - Heart failure, unspecified Status: Acute Assessment and Plan: * BNP slightly elevated at 493 * Echo EF 60-65% with a grade 1 diastolic dysfunction * BLE edema noted * Chest xray indicates pulmonary edema * No notable shortness of breath * No acute exacerbation at this time * Consider adding a little bit of lasix * Could be related to dehydration as well (7) UTI (urinary tract infection): Code(s): N39.0 - Urinary tract infection, site not specified Status: Acute Assessment and Plan: * Urine culture grew Enterobacter cloacae complex * DC on cefdinir PO for 7 days * Trend urine output DS: Summary Hospital Course Hospital Course: Patient is a 76-year-old female with a past medical history of hypertension, schizophrenia, CVA who presented to the ED after she was found over flowing her bathtub and semiconscious in her bath time. Patient was experiencing delusions and hallucinations. Patient has many stories of why she is here. However the true story is the patient quit taking her medications. UA did come back positive and grew Enterobacter Colace complex. Patient was also worked up for syncope. Head C
[2021-12-04 14:00] VITALS: BP 141/68; PULSE 96; RESP 21; TEMP 36.9; O2SAT 96
[2021-12-04] MEDS: DICLOFENAC SODIUM 1% 100 GM GEL (*BKC) 1 APPLIC TOPICAL ×2 (15:06→20:32)
[2021-12-04] MEDS: CEFDINIR 300 MG CAPSULE PO ×2 (15:06→20:32)
[2021-12-04] MEDS: HEPARIN SODIUM 5,000 UNITS/ML VIAL 5000 UNITS SUB-Q (20:32)
[2021-12-04] MEDS: ASPIRIN 81 MG ENTERIC TABLET PO (20:32)
[2021-12-04] MEDS: risperiDONE 1 MG TABLET PO (20:32)
[2021-12-04] MEDS: ATORVASTATIN 40 MG TABLET PO (20:32)
[2021-12-04 21:58] VITALS: BP 158/66; PULSE 84; RESP 18; TEMP 36.6; O2SAT 96
[2021-12-05 04:16] LABS: Osmolality, Urine 413 mOsm/kg (50-1200)
[2021-12-05 05:48] VITALS: BP 139/74; PULSE 91; RESP 18; TEMP 37.1; O2SAT 96
[2021-12-05] MEDS: HEPARIN SODIUM 5,000 UNITS/ML VIAL 5000 UNITS SUB-Q (08:35)
[2021-12-05] MEDS: CEFDINIR 300 MG CAPSULE PO (08:35)
[2021-12-05] MEDS: FAMOTIDINE 20 MG TABLET PO (11:39)
== END 2021-12-05 11:55 | disposition home or self-care (01) ==
LOC: ANHED 20:49 → ANH3MEDSUR 12-02 02:02
PROVIDERS: Family Medicine; Admitting Provider Internal Medicine; Emergency Provider Emergency Medicine; Visit Provider Nurse Practitioner
DX: N17.9 Acute kidney failure, unspecified (principal); R41.82 Altered mental status, unspecified; R55 Syncope and collapse; R74.01 Elevation of levels of liver transaminase levels; D64.9 Anemia, unspecified; N39.0 Urinary tract infection, site not specified; L53.9 Erythematous condition, unspecified; Z86.73 Personal history of transient ischemic attack (TIA), and cerebral infarction without residual deficits; H40.9 Unspecified glaucoma; F20.9 Schizophrenia, unspecified; E78.5 Hyperlipidemia, unspecified; Z79.82 Long term (current) use of aspirin; I50.9 Heart failure, unspecified; I11.0 Hypertensive heart disease with heart failure; Z20.822 Contact with and (suspected) exposure to COVID-19
CPT/HCPCS: 36415; 70450; 70551; 71045; 73630; 76770; 80048; 80053; 80074; 80307; 81001; 82140; 82306; 82550; 82570; 82607; 82728; 82746; 83540; 83550; 83605; 83735; 83880; 83935; 84300; 84484; 84540; 85025; 85046; 85610; 85730; 86703; 87077; 87086; 87186; 93005; 93306; 93880; 93976; 96361; 96365; 96366; 96372; 96375; 97161; 97165; 99285; A9270; C9803; G0378; G0432; J1644; J3480; J7030; J7040; J7120; U0003; U0005